=== PATIENT | male | born 1990 | race Caucasian/White ===

== ENCOUNTER 2017-04-10 18:32 | Emergency (ER) | payer SELFPAY ==
[2017-04-10 18:40] VITALS: RESP 18
--- NOTE | 2017-04-10 18:47 | ED ---
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 he states that in december he lost 3 people in the matter of 8 days. one person was his cousin who commited suicide and another was his sponsor. he states that everything has been "going downhill" since then.) How Overdose Was Discovered: family/friend present at time (patient at steffi's house. she administered Narcan. ) Context: Accidental Overdose: other (he states that it was a very small amount so is unsure how he overdosed. he does state that he has not slept in 2 days so that may have attributed to it) Treatments Prior to Arrival: narcan (administered by steffi) - Related Data Home Medications Medication Instructions Recorded Confirmed No Known Home Medications [No 04/10/17 04/10/17 Known Home Medications] Allergies Allergy/AdvReac Type Severity Reaction Status Date / Time No Known Allergies Allergy Verified 04/10/17 18:59 Review of Systems ROS Statement: Those systems with pertinent positive or pertinent negative responses have been documented in the HPI. ROS Other: All systems not noted in ROS Statement are negative. General Exam Limitations: no limitations General appearance: alert, in no apparent distress Head exam: Present: atraumatic, normocephalic Eye exam: Present: EOMI. Absent: normal appearance (bilateral conjunctiva injection) Pupils: Present: miosis (bilateral ) ENT exam: Present: normal exam, normal oropharynx, mucous membranes moist Neck exam: Present: normal inspection, full ROM. Absent: tenderness Respiratory exam: Present: normal lung sounds bilaterally. Absent: respiratory distress, wheezes, rales, rhonchi Cardiovascular Exam: Present: regular rate, normal rhythm, normal heart sounds. Absent: systolic murmur, diastolic murmur GI/Abdominal exam: Present: soft. Absent: distended, tenderness Extremities exam: Present: normal inspection, full ROM. Absent: tenderness Neurological exam: Present: alert, oriented X3, normal gait Psychiatric exam: Present: normal affect, normal mood Skin exam: Present: warm, dry, intact, normal color Course Vital Signs 04/10/17 18:37 Temperature 97.7 F Pulse Rate 91 Respiratory 18 Rate Blood Pressure 144/92 O2 Sat by Pulse 95 Oximetry Medical Decision Making - Medical Decision Making This is a 26-year-old male who presents to the emergency department via EMS for heroin overdose. Narcan was administered by girlfriend prior to EMS arrival. While in the ED, patient's vitals are stable and he is awake and alert. Patient has no complaints. He was monitored for over one hour and appears well, in no acute distress. He will be discharged home. Disposition Clinical Impression: Accidental overdose of heroin Disposition: HOME SELF-CARE Condition: Good Instructions: Adult Overdose (ED) Additional Instructions: Please follow up with primary care provider within 1-2 days. Return to emergency department if symptoms should worsen or any concerns arise. Referrals: None,Stated [Primary Care Provider] - 1-2 days Time of Disposition: 19:54
[2017-04-10 20:05] VITALS: BP 110/65; PULSE 82; TEMP 98
== END 2017-04-10 20:05 | disposition home or self-care (01) ==
LOC: EC 18:32
DX: T40.1X1A Poisoning by heroin, accidental (unintentional), initial encounter (principal)
CPT/HCPCS: 99284

== ENCOUNTER 2018-08-31 18:48 | Inpatient (IN) | payer OTHER ==
[2018-08-31] MEDS ORDERED: SODIUM CHLORIDE 0.9% 1,000 ML IV STA (18:56)
--- NOTE | 2018-08-31 19:00 | ED ---
General Adult HPI - General Stated complaint: overdose Time Seen by Provider: 08/31/18 18:50 Source: police, EMS, RN notes reviewed Mode of arrival: EMS Limitations: altered mental status, physical limitation - History of Present Illness Initial comments: Patient is a 28-year-old male presenting to the emergency department with EMS and police escort for concern for drug overdose. Patient was found unresponsive by family. Patient did receive nasal Narcan 2 mg as well as 0.5 IV. Patient's mentation has improved. Patient is nonverbal still at this point and provides no additional history. Patient does have previous visit for overdose. Please state patient was found with spoon and drug paraphernalia. There is also concern of needle that may been in the patient's arm. - Related Data Home Medications Medication Instructions Recorded Confirmed No Known Home Medications 04/10/17 04/10/17 Allergies Allergy/AdvReac Type Severity Reaction Status Date / Time No Known Allergies Allergy Verified 04/10/17 18:59 Review of Systems ROS Statement: Those systems with pertinent positive or pertinent negative responses have been documented in the HPI. ROS Other: All systems not noted in ROS Statement are negative. Limitations: ROS unobtainable due to patients medical condition Past Medical History Past Medical History: No Reported History History of Any Multi-Drug Resistant Organisms: None Reported Past Surgical History: Orthopedic Surgery Past Psychological History: Depression Smoking Status: Former smoker Past Alcohol Use History: None Reported Past Drug Use History: Heroin General Exam Limitations: altered mental status, physical limitation General appearance: alert, other (Mildly restless) Head exam: Present: atraumatic, normocephalic Eye exam: Present: normal appearance, PERRL ENT exam: Present: mucous membranes dry, other (Poor dentition) Neck exam: Present: normal inspection. Absent: tenderness, meningismus Respiratory exam: Present: normal lung sounds bilaterally Cardiovascular Exam: Present: tachycardia GI/Abdominal exam: Present: soft. Absent: tenderness Extremities exam: Present: normal inspection Expanded Neurological exam: Present: protecting the airway Eye Response: (2) open to pain Motor Response: (5) localizes to pain Verbal Response: incomprehensible sounds Psychiatric exam: Present: other (Limited interaction) Skin exam: Present: normal color. Absent: rash Course Vital Signs 08/31/18 08/31/18 08/31/18 18:52 19:07 19:15 Temperature 100.7 F H Pulse Rate 129 H Pulse Rate [ 126 H Test Lead ] Respiratory 38 H 35 H Rate Blood Pressure 119/93 O2 Sat by Pulse 93 L Oximetry 08/31/18 08/31/18 08/31/18 19:20 19:24 19:48 Temperature Pulse Rate 141 H 119 H Pulse Rate [ Test Lead ] Respiratory 30 H 32 H 36 H Rate Blood Pressure 145/91 128/88 O2 Sat by Pulse 93 L 86 L Oximetry 08/31/18 08/31/18 08/31/18 19:51 20:06 20:13 Temperature 98 F Pulse Rate 117 H 110 H 104 H Pulse Rate [ Test Lead ] Respiratory 33 H 28 H 25 H Rate Blood Pressure 127/88 130/84 115/81 O2 Sat by Pulse 95 95 96 Oximetry 08/31/18 08/31/18 08/31/18 20:20 20:30 20:50 Temperature Pulse Rate 125 H 110 H 94 Pulse Rate [ Test Lead ] Respiratory 23 25 H 20 Rate Blood Pressure 130/84 115/81 114/78 O2 Sat by Pulse 95 95 96 Oximetry 08/31/18 08/31/18 08/31/18 21:10 21:20 21:30 Temperature Pulse Rate 115 H 122 H 105 H Pulse Rate [ Test Lead ] Respiratory 23 23 23 Rate Blood Pressure 113/81 139/105 131/82 O2 Sat by Pulse 95 97 97 Oximetry 08/31/18 08/31/18 21:40 21:50 Temperature Pulse Rate 98 98 Pulse Rate [ Test Lead ] Respiratory 17 22 Rate Blood Pressure 132/89 119/79 O2 Sat by Pulse 99 97 Oximetry - Reevaluation(s) Reevaluation #1: 08/31/18 20:32 Patient reevaluated 2 times. Patient was able to tolerate lumbar puncture without difficulty. Patient did flinch somewhat during lidocaine administration however not the rest of the procedure. Patient still remains drowsy. GCS remains around 9. There is concern for possible endocarditis with history of drug use and fever. Spinal fluid was clear. Patient will be intubated for altered mental status and to protect airway. Case was discussed in detail with Dr. Hammonds, covering for hospital call, who will admit. 08/31/18 21:12 Patient was intubated for airway protection. Case was also discussed in detail with Dr. Gonzalez who agrees with care and will consult for critical care in the ICU. 08/31/18 21:19 Patient has been covered with antibiotics for presumptive septic shock and possible endocarditis. Cardiology and infectious disease will be consulted. Echo will be ordered. There is suspicion for septic shock diagnosed at 2100. Blood culture and lactic acid and IV antibiotics have all been ordered. Fluid bolus has been ordered. 08/31/18 22:09 Admission orders were written. EKG Findings - EKG Comments: EKG Findings:: Sinus tachycardia 120. PA 162. QRS 96. QT 322. QTC 455. Normal axis. Normal QRS. No acute ST change. Procedures - ABG Interpretation Ph: 7.29 PCO2: 47.6 PO2: 4,000 Interpretation: respiratory acidosis, metabolic acidosis - Intubation Sedative: Versed Paralytic: Succinylcholine Laryngoscope: Jensen Size: 3 ET Tube Size: 8 Tube Secured Depth (cm): 23 Tube Secured Location: lips Tube Placement Confirmation: visualized tube passing through cords, equal breath sounds bilaterally, no breath sounds over epigastrium, confirmation by capnometry Patient Tolerated Procedure: well, no complications Intubation Complications: none - Lumbar Puncture Consent Obtained: emergent situation Indication for Procedure: fever work up Patient Position: sitting upright/leaning forward Skin Prep: 0.5% Chlorhexidine/Alcohol Local Anesthetic Used: Lidocaine 1% Interspace Used: L4-L5 Fluid Initially Obtained: clear Complications: none Patient Tolerated Procedure: well, no complications - Sepsis Sepsis Focused Exam #1 Time Sepsis Criteria Met: 21:01 Sepsis Focused Exam Date: 08/31/18 Sepsis Focused Exam Time: 22:29 Sepsis Focused Exam Complete: Yes Vital Signs & RN Notes Reviewed: Yes Capillary Refill: < 2 Seconds: Fingers, Toes Peripheral Pulses: Normal: Radial (R), Radial (L), Dorsalis Pedis (R), Dorsalis Pedis (L) Skin Color: Normal for Patient Respiratory Exam: normal lung sounds Cardiovascular Exam: tachycardia Medical Decision Making - Lab Data Result diagrams: 08/31/18 18:54 08/31/18 18:54 Lab Results 08/31/18 08/31/18 08/31/18 Range/Units 18:54 18:54 18:54 WBC (3.8-10.6) k/uL RBC (4.30-5.90) m/uL Hgb (13.0-17.5) gm/dL Hct (39.0-53.0) % MCV (80.0-100.0) fL MCH (25.0-35.0) pg MCHC (31.0-37.0) g/dL RDW (11.5-15.5) % Plt Count (150-450) k/uL Neutrophils % % Lymphocytes % % Monocytes % % Eosinophils % % Basophils % % Neutrophils # (1.3-7.7) k/uL Lymphocytes # (1.0-4.8) k/uL Monocytes # (0-1.0) k/uL Eosinophils # (0-0.7) k/uL Basophils # (0-0.2) k/uL PT 10.2 (9.0-12.0) sec INR 1.0 (<1.2) Sodium 138 (137-145) mmol/L Potassium 4.8 (3.5-5.1) mmol/L Chloride 100 (98-107) mmol/L Carbon Dioxide 19 L (22-30) mmol/L Anion Gap 19 mmol/L BUN 7 L (9-20) mg/dL Creatinine 1.48 H (0.66-1.25) mg/dL Est GFR (CKD-EPI)AfAm 73 (>60 ml/min/1.73 sqM) Est GFR (CKD-EPI)NonAf 63 (>60 ml/min/1.73 sqM) Glucose 341 H (74-99) mg/dL Plasma Lactic Acid Martin (0.7-2.0) mmol/L Calcium 9.6 (8.4-10.2) mg/dL Total Bilirubin 0.6 (0.2-1.3) mg/dL AST 116 H (17-59) U/L ALT 74 H (21-72) U/L Alkaline Phosphatase 107 (38-126) U/L Creatine Kinase 539 H (55-170) U/L CK-MB (CK-2) (0.0-2.4) ng/mL Troponin I 0.609 H* (0.000-0.034) ng/mL NT-Pro-B Natriuret Pep pg/mL Total Protein 7.4 (6.3-8.2) g/dL Albumin 4.6 (3.5-5.0) g/dL Urine Color Urine Appearance (Clear) Urine pH (5.0-8.0) Ur Specific [place] (1.001-1.035) Urine Protein (Negative) Urine Glucose (UA) (Negative) Urine Ketones (Negative) Urine Blood (Negative) Urine Nitrite (Negative) Urine Bilirubin (Negative) Urine Urobilinogen (<2.0) mg/dL Ur Leukocyte Esterase (Negative) Urine RBC (0-5) /hpf Urine WBC (0-5) /hpf Hyaline Casts (0-2) /lpf Urine Mucus (None) /hpf CSF Tube Number CSF Volume CSF Appearance CSF Color CSF RBC (0-10) u/L CSF Tot Nucleated Cells (0-5) u/L CSF Glucose (40-70) mg/dL CSF Total Protein (12-60) mg/dL Salicylates <1.0 mg/dL Urine Opiates Screen (NotDetected) Ur Oxycodone Screen (NotDetected) Urine Methadone Screen (NotDetected) Ur Propoxyphene Screen (NotDetected) Acetaminophen <10.0 ug/mL Ur Barbiturates Screen (NotDetected) U Tricyclic Antidepress (NotDetected) Ur Phencyclidine Scrn (NotDetected) Ur Amphetamines Screen (NotDetected) U Methamphetamines Scrn (NotDetected) U Benzodiazepines Scrn (NotDetected) Urine Cocaine Screen (NotDetected) U Marijuana (THC) Screen (NotDetected) Serum Alcohol <10 mg/dL 08/31/18 08/31/18 08/31/18 Range/Units 18:54 18:54 18:54 WBC 21.9 H (3.8-10.6) k/uL RBC 5.31 (4.30-5.90) m/uL Hgb 15.6 (13.0-17.5) gm/dL Hct 47.9 (39.0-53.0) % MCV 90.2 (80.0-100.0) fL MCH 29.3 (25.0-35.0) pg MCHC 32.5 (31.0-37.0) g/dL RDW 14.0 (11.5-15.5) % Plt Count 334 (150-450) k/uL Neutrophils % 79 % Lymphocytes % 16 % Monocytes % 1 % Eosinophils % 3 % Basophils % 1 % Neutrophils # 17.3 H (1.3-7.7) k/uL Lymphocytes # 3.4 (1.0-4.8) k/uL Monocytes # 0.2 (0-1.0) k/uL Eosinophils # 0.7 (0-0.7) k/uL Basophils # 0.1 (0-0.2) k/uL PT (9.0-12.0) sec INR (<1.2) Sodium (137-145) mmol/L Potassium (3.5-5.1) mmol/L Chloride (98-107) mmol/L Carbon Dioxide (22-30) mmol/L Anion Gap mmol/L BUN (9-20) mg/dL Creatinine (0.66-1.25) mg/dL Est GFR (CKD-EPI)AfAm (>60 ml/min/1.73 sqM) Est GFR (CKD-EPI)NonAf (>60 ml/min/1.73 sqM) Glucose (74-99) mg/dL Plasma Lactic Acid Martin 9.1 H* (0.7-2.0) mmol/L Calcium (8.4-10.2) mg/dL Total Bilirubin (0.2-1.3) mg/dL AST (17-59) U/L ALT (21-72) U/L Alkaline Phosphatase (38-126) U/L Creatine Kinase (55-170) U/L CK-MB (CK-2) 6.4 H (0.0-2.4) ng/mL Troponin I (0.000-0.034) ng/mL NT-Pro-B Natriuret Pep pg/mL Total Protein (6.3-8.2) g/dL Albumin (3.5-5.0) g/dL Urine Color Urine Appearance (Clear) Urine pH (5.0-8.0) Ur Specific [place] (1.001-1.035) Urine Protein (Negative) Urine Glucose (UA) (Negative) Urine Ketones (Negative) Urine Blood (Negative) Urine Nitrite (Negative) Urine Bilirubin (Negative) Urine Urobilinogen (<2.0) mg/dL Ur Leukocyte Esterase (Negative) Urine RBC (0-5) /hpf Urine WBC (0-5) /hpf Hyaline Casts (0-2) /lpf Urine Mucus (None) /hpf CSF Tube Number CSF Volume CSF Appearance CSF Color CSF RBC (0-10) u/L CSF Tot Nucleated Cells (0-5) u/L CSF Glucose (40-70) mg/dL CSF Total Protein (12-60) mg/dL Salicylates mg/dL Urine Opiates Screen (NotDetected) Ur Oxycodone Screen (NotDetected) Urine Methadone Screen (NotDetected) Ur Propoxyphene Screen (NotDetected) Acetaminophen ug/mL Ur Barbiturates Screen (NotDetected) U Tricyclic Antidepress (NotDetected) Ur Phencyclidine Scrn (NotDetected) Ur Amphetamines Screen (NotDetected) U Methamphetamines Scrn (NotDetected) U Benzodiazepines Scrn (NotDetected) Urine Cocaine Screen (NotDetected) U Marijuana (THC) Screen (NotDetected) Serum Alcohol mg/dL 08/31/18 08/31/18 08/31/18 Range/Units 18:54 19:06 19:06 WBC (3.8-10.6) k/uL RBC (4.30-5.90) m/uL Hgb (13.0-17.5) gm/dL Hct (39.0-53.0) % MCV (80.0-100.0) fL MCH (25.0-35.0) pg MCHC (31.0-37.0) g/dL RDW (11.5-15.5) % Plt Count (150-450) k/uL Neutrophils % % Lymphocytes % % Monocytes % % Eosinophils % % Basophils % % Neutrophils # (1.3-7.7) k/uL Lymphocytes # (1.0-4.8) k/uL Monocytes # (0-1.0) k/uL Eosinophils # (0-0.7) k/uL Basophils # (0-0.2) k/uL PT (9.0-12.0) sec INR (<1.2) Sodium (137-145) mmol/L Potassium (3.5-5.1) mmol/L Chloride (98-107) mmol/L Carbon Dioxide (22-30) mmol/L Anion Gap mmol/L BUN (9-20) mg/dL Creatinine (0.66-1.25) mg/dL Est GFR (CKD-EPI)AfAm (>60 ml/min/1.73 sqM) Est GFR (CKD-EPI)NonAf (>60 ml/min/1.73 sqM) Glucose (74-99) mg/dL Plasma Lactic Acid Martin (0.7-2.0) mmol/L Calcium (8.4-10.2) mg/dL Total Bilirubin (0.2-1.3) mg/dL AST (17-59) U/L ALT (21-72) U/L Alkaline Phosphatase (38-126) U/L Creatine Kinase (55-170) U/L CK-MB (CK-2) (0.0-2.4) ng/mL Troponin I (0.000-0.034) ng/mL NT-Pro-B Natriuret Pep 29 pg/mL Total Protein (6.3-8.2) g/dL Albumin (3.5-5.0) g/dL Urine Color Light Yellow Urine Appearance Clear (Clear) Urine pH 6.5 (5.0-8.0) Ur Specific [place] 1.008 (1.001-1.035) Urine Protein 1+ H (Negative) Urine Glucose (UA) 3+ H (Negative) Urine Ketones Negative (Negative) Urine Blood Moderate H (Negative) Urine Nitrite Negative (Negative) Urine Bilirubin Negative (Negative) Urine Urobilinogen <2.0 (<2.0) mg/dL Ur Leukocyte Esterase Negative (Negative) Urine RBC 3 (0-5) /hpf Urine WBC 3 (0-5) /hpf Hyaline Casts 7 H (0-2) /lpf Urine Mucus Rare H (None) /hpf CSF Tube Number CSF Volume CSF Appearance CSF Color CSF RBC (0-10) u/L CSF Tot Nucleated Cells (0-5) u/L CSF Glucose (40-70) mg/dL CSF Total Protein (12-60) mg/dL Salicylates mg/dL Urine Opiates Screen Not Detected (NotDetected) Ur Oxycodone Screen Not Detected (NotDetected) Urine Methadone Screen Not Detected (NotDetected) Ur Propoxyphene Screen Not Detected (NotDetected) Acetaminophen ug/mL Ur Barbiturates Screen Not Detected (NotDetected) U Tricyclic Antidepress Not Detected (NotDetected) Ur Phencyclidine Scrn Not Detected (NotDetected) Ur Amphetamines Screen Not Detected (NotDetected) U Methamphetamines Scrn Not Detected (NotDetected) U Benzodiazepines Scrn Not Detected (NotDetected) Urine Cocaine Screen Not Detected (NotDetected) U Marijuana (THC) Screen Not Detected (NotDetected) Serum Alcohol mg/dL 08/31/18 Range/Units 20:27 WBC (3.8-10.6) k/uL RBC (4.30-5.90) m/uL Hgb (13.0-17.5) gm/dL Hct (39.0-53.0) % MCV (80.0-100.0) fL MCH (25.0-35.0) pg MCHC (31.0-37.0) g/dL RDW (11.5-15.5) % Plt Count (150-450) k/uL Neutrophils % % Lymphocytes % % Monocytes % % Eosinophils % % Basophils % % Neutrophils # (1.3-7.7) k/uL Lymphocytes # (1.0-4.8) k/uL Monocytes # (0-1.0) k/uL Eosinophils # (0-0.7) k/uL Basophils # (0-0.2) k/uL PT (9.0-12.0) sec INR (<1.2) Sodium (137-145) mmol/L Potassium (3.5-5.1) mmol/L Chloride (98-107) mmol/L Carbon Dioxide (22-30) mmol/L Anion Gap mmol/L BUN (9-20) mg/dL Creatinine (0.66-1.25) mg/dL Est GFR (CKD-EPI)AfAm (>60 ml/min/1.73 sqM) Est GFR (CKD-EPI)NonAf (>60 ml/min/1.73 sqM) Glucose (74-99) mg/dL Plasma Lactic Acid Martin (0.7-2.0) mmol/L Calcium (8.4-10.2) mg/dL Total Bilirubin (0.2-1.3) mg/dL AST (17-59) U/L ALT (21-72) U/L Alkaline Phosphatase (38-126) U/L Creatine Kinase (55-170) U/L CK-MB (CK-2) (0.0-2.4) ng/mL Troponin I (0.000-0.034) ng/mL NT-Pro-B Natriuret Pep pg/mL Total Protein (6.3-8.2) g/dL Albumin (3.5-5.0) g/dL Urine Color Urine Appearance (Clear) Urine pH (5.0-8.0) Ur Specific [place] (1.001-1.035) Urine Protein (Negative) Urine Glucose (UA) (Negative) Urine Ketones (Negative) Urine Blood (Negative) Urine Nitrite (Negative) Urine Bilirubin (Negative) Urine Urobilinogen (<2.0) mg/dL Ur Leukocyte Esterase (Negative) Urine RBC (0-5) /hpf Urine WBC (0-5) /hpf Hyaline Casts (0-2) /lpf Urine Mucus (None) /hpf CSF Tube Number 4 CSF Volume 1 CSF Appearance Clear CSF Color Colorless CSF RBC 2 (0-10) u/L CSF Tot Nucleated Cells 0 (0-5) u/L CSF Glucose 135 H (40-70) mg/dL CSF Total Protein 57 (12-60) mg/dL Salicylates mg/dL Urine Opiates Screen (NotDetected) Ur Oxycodone Screen (NotDetected) Urine Methadone Screen (NotDetected) Ur Propoxyphene Screen (NotDetected) Acetaminophen ug/mL Ur Barbiturates Screen (NotDetected) U Tricyclic Antidepress (NotDetected) Ur Phencyclidine Scrn (NotDetected) Ur Amphetamines Screen (NotDetected) U Methamphetamines Scrn (NotDetected) U Benzodiazepines Scrn (NotDetected) Urine Cocaine Screen (NotDetected) U Marijuana (THC) Screen (NotDetected) Serum Alcohol mg/dL - Radiology Data Radiology results: report reviewed (Computed tomography scan the brain reveals no acute process), image reviewed (X-ray shows no acute process) Interpreted by me: Repeat chest x-ray shows appropriate endotracheal tube positioning. There is increased opacities bilateral perihilar region. Critical Care Time Critical Care Time: Yes Total Critical Care Time: 68 Disposition Clinical Impression: Septic shock Disposition: ADMITTED IP TO THIS [facility] Condition: Critical Is patient prescribed a controlled substance at d/c from ED?: No Decision Time: 21:13
[2018-08-31] MEDS ORDERED: NALOXONE 0.4 MG/ML 1 ML VIAL IV STA (19:14)
[2018-08-31] MEDS ORDERED: NALOXONE 0.4 MG/ML 10 ML VIAL IM STA (19:18)
[2018-08-31] MEDS ORDERED: NALOXONE 0.4 MG/ML 1 ML VIAL IM STA (19:18)
[2018-08-31 19:19] LABS: Basophils # (A) 0.1 k/uL (0-0.2); Basophils % (A) 1 %; Eosinophils # (A) 0.7 k/uL (0-0.7); Eosinophils % (A) 3 %; HCT 47.9 % (39.0-53.0); HGB 15.6 gm/dL (13.0-17.5); Lymphocytes # (A) 3.4 k/uL (1.0-4.8); Lymphocytes % (A) 16 %; MCH 29.3 pg (25.0-35.0); MCHC 32.5 g/dL (31.0-37.0); MCV 90.2 fL (80.0-100.0); Mean Platelet Volume 7.3; Monocytes # (A) 0.2 k/uL (0-1.0); Monocytes % (A) 1 %; Neutrophils # (A) 17.3 k/uL (1.3-7.7); Neutrophils % (A) 79 %; Platelet Count 334 k/uL (150-450); RBC 5.31 m/uL (4.30-5.90); WBC 21.9 k/uL (3.8-10.6)
[2018-08-31 19:20] LABS: Prothrombin Time 10.2 sec (9.0-12.0)
[2018-08-31 19:24] LABS: ALT 74 U/L (21-72); AST 116 U/L (17-59); Acetaminophen <10.0 ug/mL; African American GFR (CKD) 73 (>60 ml/min/1.73 sqM); Albumin 4.6 g/dL (3.5-5.0); Alcohol <10 mg/dL; Alkaline Phosphatase 107 U/L (38-126); Anion Gap 19 mmol/L; Blood Urea Nitrogen 7 mg/dL (9-20); Calcium 9.6 mg/dL (8.4-10.2); Carbon Dioxide 19 mmol/L (22-30); Chloride 100 mmol/L (98-107); Creatine Kinase 539 U/L (55-170); Glucose 341 mg/dL (74-99); Potassium 4.8 mmol/L (3.5-5.1); Salicylate <1.0 mg/dL; Sodium 138 mmol/L (137-145); Total Bilirubin 0.6 mg/dL (0.2-1.3); Total Protein 7.4 g/dL (6.3-8.2)
[2018-08-31 19:27] LABS: Amphetamine Screen,Urine Not Detected (NotDetected); Appearance,Urine Clear (Clear); Barbiturate Screen,Urine Not Detected (NotDetected); Benzodiazepines Screen,Urine Not Detected (NotDetected); Bilirubin,Urine Negative (Negative); Blood,Urine Moderate (Negative); Cocaine Screen,Urine Not Detected (NotDetected); Color,Urine Light Yellow; Glucose,Urine (UA) 3+ (Negative); Hyaline Casts,Urine 7 /lpf (0-2); Ketones,Urine Negative (Negative); Leukocyte Esterase,Urine Negative (Negative); Methadone Screen, Urine Not Detected (NotDetected); Mucus,Urine Rare /hpf; Nitrite,Urine Negative (Negative); Opiate Screen,Urine Not Detected (NotDetected); Oxycodone Screen, Urine Not Detected (NotDetected); PH, Urine 6.5 (5.0-8.0); Phencyclidine Screen,Urine Not Detected (NotDetected); Protein,Urine 1+ (Negative); RBC,Urine 3 /hpf (0-5); Specific Gravity,Urine 1.008 (1.001-1.035); Tricyclic Antidepressant,Urine Not Detected (NotDetected); Urn Cannabinoid Scrn Not Detected (NotDetected); Urobilinogen,Urine <2.0 mg/dL (<2.0); WBC,Urine 3 /hpf (0-5)
[2018-08-31] MEDS ORDERED: ACETAMINOPHEN SUPPOSITORY 650 MG SUPP RECTAL STA (19:27)
--- NOTE | 2018-08-31 19:45 | XR ---
EXAMINATION TYPE: XR chest 1V portable DATE OF EXAM: 08/31/2018 COMPARISON: NONE HISTORY: Altered mental status. Drug overdose. TECHNIQUE: Single frontal view of the chest is obtained. FINDINGS: Heart and mediastinum are normal. Lungs are clear. Diaphragm is normal. There are chest le ads. IMPRESSION: Normal chest
--- NOTE | 2018-08-31 19:59 | CT ---
EXAMINATION TYPE: CT brain wo con DATE OF EXAM: 08/31/2018 COMPARISON: None HISTORY: Altered mental status. CT DLP: 1133.4 mGycm. Automated Exposure Control for Dose Reduction was Utilized. TECHNIQUE: CT scan of the head is performed without contrast. FINDINGS: Ventricles have normal size. There is no mass effect nor midline shift. There is no sign of intracranial hemorrhage. Calvarium is intact. IMPRESSION: Negative CT scan of the brain. Right maxillary sinusitis noted.
[2018-08-31] MEDS ORDERED: PIPERACILLIN-TAZOBACTAM 3.375 GM in SODIUM CHLORIDE 0.9% 100 ML IVPB STA (20:25)
[2018-08-31] MEDS ORDERED: VANCOMYCIN IV PER PHARMACY 1 EACH MISC MISCELLANE PRN (20:32)
[2018-08-31] MEDS ORDERED: SODIUM CHLORIDE 0.9% 1,000 ML IV ONE (20:33)
[2018-08-31] MEDS ORDERED: SODIUM CHLORIDE 0.9% 500 ML 500 ML IV STA (20:35)
[2018-08-31] MEDS ORDERED: CHLORHEXIDINE GLUCONATE 15 ML CUP MUCOUS MEM ONE (20:55)
[2018-08-31 21:01] LABS: Appearance,CSF Clear; Glucose,CSF 135 mg/dL (40-70); Total Protein,CSF 57 mg/dL (12-60)
[2018-08-31 21:02] LABS: CSF Tube Number 4; CSF Tube Volume 1; Nucleated Cells, CSF 0 u/L (0-5); Red Blood Cell,CSF 2 u/L (0-10)
[2018-08-31] MEDS ORDERED: SUCCINYLCHOLINE CHLORIDE VIAL 200 MG/10 ML VIAL IV STA (21:05)
[2018-08-31] MEDS ORDERED: MIDAZOLAM 1 MG/ML 5 ML VIAL IV STA (21:05)
[2018-08-31] MEDS ORDERED: LORazepam 2 MG/ML INJ IV PRN ×2 (21:10)
[2018-08-31] MEDS ORDERED: PROPOFOL 1,000 MG in EMPTY BAG 1 BAG IV SCH (21:15)
[2018-08-31] MEDS ORDERED: ACETAMINOPHEN SUPPOSITORY 650 MG SUPP RECTAL PRN (21:23)
[2018-08-31] MEDS ORDERED: NALOXONE 0.4 MG/ML 1 ML VIAL IV PRN (21:23)
--- NOTE | 2018-08-31 21:49 | XR ---
EXAMINATION TYPE: XR chest 1V portable DATE OF EXAM: 08/31/2018 COMPARISON: Today HISTORY: Intubation TECHNIQUE: Single frontal view of the chest is obtained. FINDINGS: There is endotracheal tube 2 cm from the tico. There is pulmonary alveolar edema. There are chest leads. There is nasogastric tube. IMPRESSION: There is pulmonary edema that is new compared to exam 2 hours ago.
[2018-08-31 21:59] LABS: ABG Base Excess -3.4 mmol/L; ABG HCO3 23 mmol/L (21-25); ABG Oxygen Saturation 99.5 % (94-97); ABG PCO2 48 mmHg (35-45); ABG PO2 >400 mmHg (83-108); ABG TCO2 25 mmol/L (19-24); Allen Test Performed? Yes
[2018-08-31] MEDS ORDERED: VANCOMYCIN 1,500 MG in SODIUM CHLORIDE 0.9% 250 ML IVPB ONE (22:00)
[2018-08-31 22:04] LABS: Amphetamine Screen,Urine Not Detected (NotDetected); Barbiturate Screen,Urine Not Detected (NotDetected); Benzodiazepines Screen,Urine Not Detected (NotDetected); Cocaine Screen,Urine Not Detected (NotDetected); Methadone Screen, Urine Not Detected (NotDetected); Opiate Screen,Urine Not Detected (NotDetected); Oxycodone Screen, Urine Not Detected (NotDetected); Phencyclidine Screen,Urine Not Detected (NotDetected); Tricyclic Antidepressant,Urine Not Detected (NotDetected); Urn Cannabinoid Scrn Not Detected (NotDetected)
[2018-08-31] MEDS: SODIUM CHLORIDE 0.9% 1,000 ML IV SCH (22:17)
[2018-08-31 22:27] LABS: Glucose,Whole Blood 81 mg/dL (75-99)
[2018-08-31] MEDS: IPRATROPIUM-ALBUTEROL 3 ML NEB INHALATION PRN (23:02)
[2018-08-31 23:03] LABS: Glucose,Whole Blood 87 mg/dL (75-99)
[2018-08-31] MEDS: PROPOFOL 1,000 MG in EMPTY BAG 1 BAG IV SCH (23:45)
[2018-09-01 01:23] LABS: Creatine Kinase 2085 U/L (55-170)
[2018-09-01] MEDS ORDERED: FUROSEMIDE 10 MG/ML 2 ML VIAL IV STA ×2 (01:23→04:38)
[2018-09-01] MEDS: HEPARIN SODIUM,PORCINE 5,000 UNIT/ML 1 ML VIAL SQ SCH ×3 (01:29→17:09)
[2018-09-01] MEDS: IPRATROPIUM-ALBUTEROL 3 ML NEB INHALATION PRN (03:08)
[2018-09-01] MEDS: PROPOFOL 1,000 MG in EMPTY BAG 1 BAG IV SCH (03:16)
[2018-09-01 04:27] LABS: ABG Base Excess -1.7 mmol/L; ABG HCO3 25 mmol/L (21-25); ABG Oxygen Saturation 98.8 % (94-97); ABG PCO2 48 mmHg (35-45); ABG PH 7.31 (7.35-7.45); ABG PO2 154 mmHg (83-108); ABG TCO2 26 mmol/L (19-24); Allen Test Performed? Yes
[2018-09-01 05:45] LABS: Basophils % (A) 0 %; Eosinophils # (A) 0.1 k/uL (0-0.7); Eosinophils % (A) 0 %; HGB 13.6 gm/dL (13.0-17.5); Lymphocytes # (A) 1.5 k/uL (1.0-4.8); Lymphocytes % (A) 12 %; MCH 30.3 pg (25.0-35.0); MCHC 34.9 g/dL (31.0-37.0); Mean Platelet Volume 7.4; Monocytes # (A) 0.6 k/uL (0-1.0); Monocytes % (A) 5 %; Neutrophils # (A) 10.3 k/uL (1.3-7.7); Neutrophils % (A) 82 %; Platelet Count 227 k/uL (150-450); RBC 4.48 m/uL (4.30-5.90); RDW 13.7 % (11.5-15.5); WBC 12.6 k/uL (3.8-10.6)
[2018-09-01 06:03] LABS: ALT 112 U/L (21-72); AST 155 U/L (17-59); African American GFR (CKD) >90 (>60 ml/min/1.73 sqM); Albumin 3.6 g/dL (3.5-5.0); Alkaline Phosphatase 84 U/L (38-126); Anion Gap 7 mmol/L; Blood Urea Nitrogen 12 mg/dL (9-20); Calcium 8.2 mg/dL (8.4-10.2); Carbon Dioxide 24 mmol/L (22-30); Chloride 109 mmol/L (98-107); Glucose 80 mg/dL (74-99); Magnesium 1.7 mg/dL (1.6-2.3); Phosphorus 3.9 mg/dL (2.5-4.5); Potassium 4.4 mmol/L (3.5-5.1); Sodium 140 mmol/L (137-145); Total Bilirubin 0.6 mg/dL (0.2-1.3); Total Protein 6.3 g/dL (6.3-8.2)
[2018-09-01] MEDS: SODIUM CHLORIDE 0.9% 1,000 ML IV SCH ×3 (06:03→22:53)
[2018-09-01] MEDS: PIPERACILLIN-TAZOBACTAM 3.375 GM in SODIUM CHLORIDE 0.9% 100 ML IVPB SCH ×3 (06:07→22:53)
--- NOTE | 2018-09-01 07:11 | HP ---
HISTORY AND PHYSICAL DATE OF SERVICE: 08/31/2018 CHIEF COMPLAINT: Unresponsive. HISTORY OF PRESENT ILLNESS: This 28-year-old gentleman with a past medical history of IV drug abuse, history of DJD, history of depression, previous history of unresponsive, being followed by no primary physician in the outpatient setting had a longstanding history of IV drug abuse. The patient apparently had unresponsiveness and the patient was mechanically intubated elsewhere several years ago according to the family. Today, the patient was found unresponsive by significant other who performed CPR. Subsequently, EMS was called and patient initially had Narcan 2 mg nasal and subsequently 0.5 IV, which improved the consciousness slightly, but the patient was basically unresponsive. Klarissa coma scale was 9. The patient was taken to the emergency room and the patient was found to be hypotensive, 2.5 L of fluid was given, 1.6 of Narcan was repeated, but subsequently patient was mechanically intubated for airway protection, unresponsive. The patient admitted to ICU at this time. The patient does have some IV needle tracks. The patient also had multiple skin lesions also. Currently patient unable to give coherent history most of the history taken from my discussion with the staff as well as review of the chart at this time. The most recent chest x-ray showed some pulmonary edema, possibly secondary to fluid resuscitation or noncardiogenic . Interestingly the drug screen is negative at this time but however per old chart in March 2017 patient had documented episode event of opioid overdose, which was recovered by Narcan and the patient was discharged from the ER from this hospital. Currently, white count is also elevated at 21.9 and creatinine is 1.48. Glucose was 341. No documented insulin was noted, but sugars came down to 71. Serum acetone has been requested. Creatine kinase elevated 530. AST and ALT were also elevated. The patient apparently had hepatitis C also. Lumbar puncture showed glucose 135 and not much else either. As mentioned earlier, the drug screen was negative at this time. PAST MEDICAL HISTORY: History of IV drug abuse, previous overdose, DJD, history of depression, history of nicotine dependence. MEDICATIONS: None. ALLERGIES: None. FAMILY HISTORY, SOCIAL HISTORY, REVIEW OF SYSTEMS: Could not be taken other than mentioned earlier because of the patient's change in mental status. PHYSICAL EXAMINATION: Patient is mechanically ventilated and sedated. Pulse is 98, blood pressure is 119/79, respiration 22, temperature normal, pulse ox 97% on mechanical ventilation. The vent settings are assist-control 450, tidal volume FiO2, PEEP of 5. HEENT: conjunctivae. Pupils are constricted. Oral mucosa moist. NECK: Is no jugular venous distention. No carotid bruit. No lymph node enlargement. CARDIOVASCULAR: S1, S2 muffled. No S3, no S4. RESPIRATORY; Breath sounds diminished at the bases. A few scattered rhonchi and crackles. ABDOMEN: Soft, nontender. No mass palpable. LEGS: No edema, no swelling. NERVOUS SYSTEM: The patient mechanically sedated. JOINTS: Otherwise joints no active deforming arthropathy. SKIN: Diffuse ulcerations on IV line markings also present. LABS AND INVESTIGATIONS: WBC 21.9, hemoglobin 15.6. The pH of 7.3, pCO2 of 48. Creatinine is 1.48. AST and ALT noted. Creatine kinase is noted. ASSESSMENT: 1. Unresponsive, change in mental status secondary to metabolic encephalopathy secondary to possible drug overdosage. 2. Acute hypoxic respiratory failure on mechanical ventilation. 3. Acute possibly secondary to drug overdose, rule out sepsis. 4. Acute metabolic acidosis secondary from multiple factors. 5. Acute renal failure possibly prerenal acute tubular necrosis. 6. Increased random blood sugar of undetermined significance, which is normalized now. 7. Increased AST, ALT, possibly hepatitis. 8. Increased creatine kinase with rhabdomyolysis. 9. Troponin 0.609, indeterminate. 10.History of previous overdosage. 11.History of degenerative joint disease. 12.History of depression. 13.History of nicotine dependence. 14.History of heroin usage. 15.FULL CODE. RECOMMENDATIONS AND DISCUSSION: This 28-year-old gentleman who presented with multiple complex medical issues, we will monitor the patient closely. Continue the current medications. Continue symptomatic treatment. Continue with mechanical ventilation otherwise I would also recommend monitor intake per chart and monitor fluid electrolyte balance. Dose of Lasix may be given. The possibility of cardiogenic or noncardiogenic pulmonary also considered. The troponin is also elevated. The EKG done showed ST changes. I would recommend a 2D echo with Doppler in the morning and continue to monitor. Empiric antibiotics also will be used. The patient is started on daptomycin at this time. We will closely monitor with Intensive Care, Cardiology and Infectious Disease. Guarded prognosis because of multiple complex medical issues. Further recommendations to follow. See orders for details. We will also send a flu swab and obtain cultures as well. We will also get extended drug screen for further evaluation including detection of possible other toxicology agent also. MMODL / IJN: [id number] / JOSHUA
--- NOTE | 2018-09-01 07:44 | XR ---
EXAMINATION TYPE: XR chest 1V portable DATE OF EXAM: 09/01/2018 COMPARISON: 08/31/2018 HISTORY: Enteric and endotracheal tube removal TECHNIQUE: Single frontal view of the chest is obtained. FINDINGS: There is marked improvement in aeration of the lungs with only minimal left basilar linear airspace disease remaining. Enteric and endotracheal tubes have been removed in the interim. No pleu ral effusion or pneumothorax. Cardiomediastinal silhouette is mildly enlarged and stable. No acute os seous pathology. IMPRESSION: Marked improved aeration of the lungs with only residual left basilar airspace disease, likely atelectasis.
[2018-09-01] MEDS: PANTOPRAZOLE 40 MG/10 ML VIAL IV SCH (08:01)
[2018-09-01] MEDS ORDERED: VANCOMYCIN 1,250 MG in SODIUM CHLORIDE 0.9% 250 ML IVPB SCH (09:00)
[2018-09-01] MEDS ORDERED: CHLORHEXIDINE GLUCONATE 15 ML CUP MUCOUS MEM SCH (09:00)
--- NOTE | 2018-09-01 09:03 | CONS ---
CONSULTATION PULMONARY CRITICAL CARE CONSULTATION: DATE OF CONSULTATION: 09/01/2018 This is a 28-year-old male who presented to the emergency department with EMS and police escort for concern of drug overdose. He apparently was found unresponsive by significant other. The patient did receive some Narcan as well as IV Narcan. The patient's mentation initially improved. Actually cardiopulmonary resuscitation was started at the scene. The patient apparently in the emergency room was initially nonverbal, seemed to improve a bit and then got worse again. Because of concerns of airway protection, Dr. Russ Pardo went ahead and intubated the patient. Drug paraphernalia was found at the home that he was at. He apparently has a previous history of drug overdose as well. There was apparently a needle that was stuck in his arm as well. The patient does have a history of polysubstance abuse. Anyway, the patient was transferred up to the ICU. He is currently on the ventilator. He is on the volume assist-control mode rate 16, tidal volume 450, FiO2 pf 50% to be dropped to 40% with a PEEP of 5. Blood gases show a PO2 of 154, pCO2 of 48, pH of 7.31. He is on propofol 40 mcg/kg per per minute and a saline IV at 130 mL an hour. The patient appears to be relatively stable. We are going to stop the propofol. We will give him Lasix 20 mg IV push, drop his IV fluids back down to 75 mL an hour and drop the FiO2 down to 40%. When he is more awake, will go ahead and place him on PSV 5 and CPAP of 5 and see if he is ready for spontaneous breathing trial and possible extubation. . HOME MEDICATIONS: Apparently none. ALLERGIES: None. MEDICAL HISTORY: Apparently positive for polysubstance overdose and possible anxiety/depression. SURGICAL HISTORY: Not known, although he apparently has had some orthopedic procedure. SOCIAL HISTORY: Positive for previous tobacco use. Denies alcohol. Previous drug use and illicit drug use includes heroin. Interestingly, his drug screen was negative. It calls into question whether not he had something such as synthetic marijuana and/or a bath salts as a possible drug ingestion. The rest of the history could not be obtained. REVIEW OF SYSTEMS: Cannot be obtained. The patient is currently sedated. Current vital signs are reviewed, temperature is 98.6, heart rate 85, respiratory rate 16, blood pressure 108/63 mean 78 and saturations are 97% on 40% FiO2 and 5 of PEEP. Appears in no acute distress. Currently sedated. HEENT: Examination is grossly unremarkable. There is an orally placed endotracheal tube and NG tube. NECK: Supple. No adenopathy or thyromegaly. Neck veins are flat. CARDIOVASCULAR: Examination reveals regular rhythm and rate. Heart rate about 80. S1, S2 normal. LUNGS: Reveal mostly clear breath sounds. No wheezes or rhonchi. No crackles. ABDOMEN: Soft, bowel sounds are heard. EXTREMITIES: Intact. No cyanosis, clubbing, or edema. SKIN: Without rash. NEUROLOGIC: Examination could not be adequately assessed. LAB DATA: Reviewed. We do have the blood gas as has been mentioned. From yesterday, white count 21.9, hemoglobin, hematocrit and platelet count all normal. Sodium 138, potassium 4.8, chloride 100, CO2 is 19, BUN and creatinine were 7 and 1.48. Again, these are labs from yesterday. Troponin was initially 0.609 and then repeat was 2.370. Creatine kinase of 539, repeat 2085. Urine appears to be relatively normal. Drug screen was essentially negative. He was negative for salicylates, Tylenol, and alcohol. Acetone was negative and the major drug groups or drugs were negative. Influenza studies were negative. The CSF was essentially negative. The patient had a brain CT. It was negative. There may be some right maxillary sinusitis. His most recent chest x-ray shows pulmonary edema. This morning's chest x-ray has not yet been done. Medications are reviewed. He is on Tylenol, chlorhexidine, daptomycin, subcu heparin, Duo Neb, Ativan, Narcan, Protonix, Zosyn and vancomycin. ASSESSMENT: 1. Suspected drug overdose with mental status changes, despite a negative drug screen, requiring intubation and mechanical ventilation for airway protection. 2. Routine ventilator management. 3. History of polysubstance abuse. 4. Previous IV heroin overdose. 5. History of tobacco use. PLAN: The patient's FiO2 is dropped from 50%-40%. When he wakes up fully, will place him on PSV 5. CPAP of 5, and see if he is ready for extubation. His propofol is currently at 40. It will be turned off. His IV of 0.9 at 130 will be dropped down to 75. Will give him Lasix 20 mg IV push. His FiO2, as mentioned, will be dropped on 40%. Hopefully, will be able to do a spontaneous breathing trial and move toward extubation. If not, the patient will need tube feeds. Additional recommendations and suggestions are forthcoming. Prognosis is guarded. MMODL / IJN: [id number] /
--- NOTE | 2018-09-01 09:22 | P.CONS ---
History of Present Illness - Reason for Consult Consult date: 09/01/18 Septic shock IV drug abuse - History of Present Illness This is a 28-year-old male who presented to the emergency center yesterday by EMS. Patient's girlfriend states that she came home and found him unconscious on the floor with shallow breathing, gurgling and bloody mucus around his mouth and nose. She contacted 911 and gave chest compressions while waiting for EMS. She describes agonal type respirations at the time. She relates that he does have a history of heroin IV drug abuse and she did not think he was actively using recently. He is also hepatitis C positive. Patient was intubated in the emergency center, found to have a temperature maximum 100.7, tachycardia, tachypnea and initially hypertensive. White count was 21.9, creatinine 1.48 and lactic acid 9.1. He is status post 3 L of IV fluid and has had good urine output status post Lasix. Troponins have been elevated at 0.609, 2.370 and 1.720. Cardiology is on consult and echocardiogram has been completed this morning. Patient was intubated in the emergency center and extubated early this morning. Liver function tests and CK were elevated. Influenza testing negative. Patient presented with a blood sugar 341 with no history of diabetes. Blood culture status received. Acute hepatitis panel has been ordered. Initial chest x-ray was normal. Second chest x-ray showed pulmonary edema. #3 chest x-ray showed marked improvement with residual left basilar airspace disease likely atelectasis. CAT scan of the brain was normal with right maxillary sinusitis. Patient underwent lumbar puncture in the emergency center that was clear, glucose 135, protein 57, RBCs 2, nucleated cells 0. Cerebral spinal fluid sent for culture. Patient is currently on daptomycin, Zosyn and vancomycin.. Review of Systems ROS unobtainable: due to mental status Past Medical History Past Medical History: No Reported History History of Any Multi-Drug Resistant Organisms: None Reported Past Surgical History: Orthopedic Surgery Past Psychological History: Depression Smoking Status: Former smoker Past Alcohol Use History: None Reported Additional Past Alcohol Use History / Comment(s): Patient is a smoker of a half a pack to 1 pack per day. Positive IV drug use with heroin. Girlfriend denies any other known drug abuse. Patient works at a [employer]. No recent travel. No service. Patient has a cat in the home. Past Drug Use History: Heroin Medications and Allergies Home Medications Medication Instructions Recorded Confirmed Type No Known Home Medications 04/10/17 04/10/17 History Allergies Allergy/AdvReac Type Severity Reaction Status Date / Time No Known Allergies Allergy Verified 04/10/17 18:59 Physical Exam Vitals: Vital Signs Temp Pulse Pulse Resp BP Pulse Ox 09/01/18 08:00 99.3 F 91 18 123/73 96 09/01/18 07:00 91 15 127/78 94 L 09/01/18 06:50 92 15 127/78 94 L 09/01/18 06:40 93 17 127/78 93 L 09/01/18 06:30 93 17 134/87 94 L 09/01/18 06:20 87 15 134/87 94 L 09/01/18 06:10 90 15 134/87 94 L 09/01/18 06:00 112 H 18 131/86 96 09/01/18 05:50 90 16 133/94 97 09/01/18 05:40 91 16 133/94 97 09/01/18 05:30 110 H 16 116/75 98 09/01/18 05:20 78 16 116/75 97 09/01/18 05:10 74 16 116/75 98 09/01/18 05:00 80 16 112/68 97 09/01/18 04:50 79 16 112/68 97 09/01/18 04:40 86 16 112/68 97 09/01/18 04:30 82 16 109/64 97 09/01/18 04:20 84 16 109/64 97 09/01/18 04:10 87 15 109/64 97 09/01/18 04:00 98.6 F 85 16 108/63 97 09/01/18 03:50 86 16 108/63 97 09/01/18 03:40 87 16 108/63 98 09/01/18 03:30 84 16 109/68 97 09/01/18 03:21 88 09/01/18 03:20 86 16 109/68 97 09/01/18 03:10 86 16 106/65 97 09/01/18 03:08 88 09/01/18 03:00 89 16 109/70 97 09/01/18 02:50 86 16 109/70 97 09/01/18 02:40 87 16 109/70 98 06/07/ 02:30 81 16 109/67 98 07 02:20 84 16 109/67 98 07 02:10 84 16 109/67 98 09/01/18 02:00 83 16 115/68 98 09/01/18 01:50 86 16 115/68 98 06/07 01:40 85 0 L 115/68 98 0607 01:30 87 17 116/71 97 07 01:20 86 16 116/71 97 07 01:10 86 16 116/71 97 09/01/18 01:00 82 16 119/75 98 09/01/18 00:50 85 16 119/75 99 09/01/18 00:40 87 16 119/75 98 09/01/18 00:30 86 16 121/75 09/01/18 00:20 87 16 121/75 97 07 00:10 89 16 121/75 97 07 00:00 98.1 F 90 16 112/71 98 06/09/13 23:50 92 16 112/71 98 08/31/18 23:40 92 16 112/71 97 08/31/18 23:30 92 16 116/73 98 06 23:20 92 16 116/73 97 08/31/18 23:18 92 08/31/18 23:10 93 16 116/73 97 08/31/18 23:02 92 08/31/18 23:00 93 16 119/61 98 /09/13 22:50 97 16 119/61 98 08/31/18 22:40 99 16 127/69 98 06 22:30 116 H 16 98 08/31/18 22:29 115 H 16 98 /09/13 22:10 97 16 120/81 98 06 22:00 102 H 16 121/79 98 06 21:59 98 16 121/79 98 08/31/18 21:50 98 22 119/79 97 08/31/18 21:40 98 17 132/89 99 08/31/18 21:30 105 H 23 131/82 97 08/31/18 21:20 122 H 23 139/105 97 08/31/18 21:10 115 H 23 113/81 95 08/31/18 20:50 94 20 114/78 96 08/31/18 20:30 110 H 25 H 115/81 95 08/31/18 20:20 125 H 23 130/84 95 08/31/18 20:13 98 F 104 H 25 H 115/81 96 08/31/18 20:06 110 H 28 H 130/84 95 08/31/18 19:51 117 H 33 H 127/88 95 08/31/18 19:48 119 H 36 H 128/88 86 L 08/31/18 19:24 32 H 08/31/18 19:20 141 H 30 H 145/91 93 L 08/31/18 19:15 35 H 08/31/18 19:07 126 H 08/31/18 18:52 100.7 F H 129 H 38 H 119/93 93 L Intake and Output 08/31/18 09/01/18 09/01/18 22:59 06:59 14:59 Intake Total 380 1502.083 100 Output Total 125 2560 100 Balance 255 -1057.917 0 Intake: IV 380 1420 100 DAPTOmycin 400 mg In 50 Sodium Chloride 0.9% 50 ml @ 100 mls/hr IVPB Q24H [facility] Rx#:[id number] Piperacillin-Tazobactam 3 200 .375 gm In Sodium Chloride 0.9% 100 ml @ 200 mls/hr IVPB ONCE STA Rx#:[id number] Sodium Chloride 0.9% 1, 130 1170 100 000 ml @ 130 mls/hr IV . Q7H42M [facility] Rx#:[id number] Vancomycin 1,500 mg In 250 Sodium Chloride 0.9% 250 ml @ 125 mls/hr IVPB ONCE ONE Rx#:[id number] Intake, IV Titration 82.083 Amount Propofol 1,000 mg In 82.083 Empty Bag 1 bag @ Titrate IV .Q0M [facility] Rx#: [id number] Oral 0 Output: Urine 125 2560 100 Other: Voiding Method Indwelling Catheter Weight 72.575 kg 77.5 kg Gen: This is a 28-year-old male. He is resting in ICU bed and appears to be comfortable and in no acute distress. Patient minimally follows all directions. He appears to be in no acute distress. HEENT: Head is atraumatic, normocephalic. Pupils equal, round. Sclerae is anicteric. Conjunctiva pink. Extremities the mouth are moist. Patient's dentition is in poor order. NECK: Supple. No JVD. No lymphadenopathy. No thyromegaly. LUNGS: Diminished but otherwise clearuscultation. No wheezes or rhonchi. No intercostal retractions. HEART: Regular rate and rhythm. No murmur. ABDOMEN: Soft. Bowel sounds are present. No masses. No tenderness. EXTREMITIES: No pedal edema. No calf tenderness.Dorsalis pedis +2 bilaterally. Patient has multiple puncture/scratch potts with scabs on his bilateral feet and ankles. NEUROLOGICAL: Patient is awake.no focal neural deficits. Results Results: Laboratory Results WBC 12.6 k/uL (3.8-10.6) H 09/01/18 05:04 RBC 4.48 m/uL (4.30-5.90) 09/01/18 05:04 Hgb 13.6 gm/dL (13.0-17.5) 09/01/18 05:04 Hct 39.0 % (39.0-53.0) 09/01/18 05:04 MCV 87.0 fL (80.0-100.0) 09/01/18 05:04 MCH 30.3 pg (25.0-35.0) 09/01/18 05:04 MCHC 34.9 g/dL (31.0-37.0) 09/01/18 05:04 RDW 13.7 % (11.5-15.5) 09/01/18 05:04 Plt Count 227 k/uL (150-450) 09/01/18 05:04 Neutrophils % 82 % 09/01/18 05:04 Lymphocytes % 12 % 09/01/18 05:04 Monocytes % 5 % 09/01/18 05:04 Eosinophils % 0 % 09/01/18 05:04 Basophils % 0 % 09/01/18 05:04 Neutrophils # 10.3 k/uL (1.3-7.7) H 09/01/18 05:04 Lymphocytes # 1.5 k/uL (1.0-4.8) 09/01/18 05:04 Monocytes # 0.6 k/uL (0-1.0) 09/01/18 05:04 Eosinophils # 0.1 k/uL (0-0.7) 09/01/18 05:04 Basophils # 0.0 k/uL (0-0.2) 09/01/18 05:04 PT 10.2 sec (9.0-12.0) 08/31/18 18:54 INR 1.0 (<1.2) 08/31/18 18:54 Sample Site [facility] 09/01/18 04:23 ABG pH 7.31 (7.35-7.45) L 09/01/18 04:23 ABG pCO2 48 mmHg (35-45) H 09/01/18 04:23 ABG pO2 154 mmHg (83-108) H 09/01/18 04:23 ABG HCO3 25 mmol/L (21-25) 09/01/18 04:23 ABG Total CO2 26 mmol/L (19-24) H 09/01/18 04:23 ABG O2 Saturation 98.8 % (94-97) H 09/01/18 04:23 ABG Base Excess -1.7 mmol/L 09/01/18 04:23 Nabeel Test Yes 09/01/18 04:23 FiO2 50 % 09/01/18 04:23 Sodium 140 mmol/L (137-145) 09/01/18 05:04 Potassium 4.4 mmol/L (3.5-5.1) 09/01/18 05:04 Chloride 109 mmol/L (98-107) H 09/01/18 05:04 Carbon Dioxide 24 mmol/L (22-30) 09/01/18 05:04 Anion Gap 7 mmol/L 09/01/18 05:04 BUN 12 mg/dL (9-20) 09/01/18 05:04 Creatinine 0.87 mg/dL (0.66-1.25) 09/01/18 05:04 Est GFR (CKD-EPI)AfAm >90 (>60 ml/min/1.73 sqM) 09/01/18 05:04 Est GFR (CKD-EPI)NonAf >90 (>60 ml/min/1.73 sqM) 09/01/18 05:04 Glucose 80 mg/dL (74-99) 09/01/18 05:04 POC Glucose (mg/dL) 87 mg/dL (75-99) 08/31/18 23:01 POC Glu Water Purification Chemist ID Roberto Pretty 08/31/18 23:01 Plasma Lactic Acid Martin 0.8 mmol/L (0.7-2.0) 08/31/18 23:04 Calcium 8.2 mg/dL (8.4-10.2) L 09/01/18 05:04 Phosphorus 3.9 mg/dL (2.5-4.5) 09/01/18 05:04 Magnesium 1.7 mg/dL (1.6-2.3) 09/01/18 05:04 Total Bilirubin 0.6 mg/dL (0.2-1.3) 09/01/18 05:04 AST 155 U/L (17-59) H 09/01/18 05:04 ALT 112 U/L (21-72) H 09/01/18 05:04 Alkaline Phosphatase 84 U/L (38-126) 09/01/18 05:04 Creatine Kinase 2085 U/L (55-170) H* 09/01/18 00:39 CK-MB (CK-2) 35.4 ng/mL (0.0-2.4) H 09/01/18 05:04 Troponin I 1.720 ng/mL (0.000-0.034) H* 09/01/18 05:04 NT-Pro-B Natriuret Pep 29 pg/mL 08/31/18 18:54 Total Protein 6.3 g/dL (6.3-8.2) 09/01/18 05:04 Albumin 3.6 g/dL (3.5-5.0) 09/01/18 05:04 Urine Color Light Yellow 08/31/18 19:06 Urine Appearance Clear (Clear) 08/31/18 19:06 Urine pH 6.5 (5.0-8.0) 08/31/18 19:06 Ur Specific [place] 1.008 (1.001-1.035) 08/31/18 19:06 Urine Protein 1+ (Negative) H 08/31/18 19:06 Urine Glucose (UA) 3+ (Negative) H 08/31/18 19:06 Urine Ketones Negative (Negative) 08/31/18 19:06 Urine Blood Moderate (Negative) H 08/31/18 19:06 Urine Nitrite Negative (Negative) 08/31/18 19:06 Urine Bilirubin Negative (Negative) 08/31/18 19:06 Urine Urobilinogen <2.0 mg/dL (<2.0) 08/31/18 19:06 Ur Leukocyte Esterase Negative (Negative) 08/31/18 19:06 Urine RBC 3 /hpf (0-5) 08/31/18 19:06 Urine WBC 3 /hpf (0-5) 08/31/18 19:06 Hyaline Casts 7 /lpf (0-2) H 08/31/18 19:06 Urine Mucus Rare /hpf (None) H 08/31/18 19:06 CSF Tube Number 4 08/31/18 20:27 CSF Volume 1 08/31/18 20:27 CSF Appearance Clear 08/31/18 20:27 CSF Color Colorless 08/31/18 20:27 CSF RBC 2 u/L (0-10) 08/31/18 20:27 CSF Tot Nucleated Cells 0 u/L (0-5) 08/31/18 20:27 CSF Glucose 135 mg/dL (40-70) H 08/31/18 20:27 CSF Total Protein 57 mg/dL (12-60) 08/31/18 20:27 Salicylates <1.0 mg/dL 08/31/18 18:54 Urine Opiates Screen Not Detected (NotDetected) 08/31/18 21:40 Ur Oxycodone Screen Not Detected (NotDetected) 08/31/18 21:40 Urine Methadone Screen Not Detected (NotDetected) 08/31/18 21:40 Ur Propoxyphene Screen Not Detected (NotDetected) 08/31/18 21:40 Acetaminophen <10.0 ug/mL 08/31/18 18:54 Ur Barbiturates Screen Not Detected (NotDetected) 08/31/18 21:40 U Tricyclic Antidepress Not Detected (NotDetected) 08/31/18 21:40 Ur Phencyclidine Scrn Not Detected (NotDetected) 08/31/18 21:40 Ur Amphetamines Screen Not Detected (NotDetected) 08/31/18 21:40 U Methamphetamines Scrn Not Detected (NotDetected) 08/31/18 21:40 U Benzodiazepines Scrn Not Detected (NotDetected) 08/31/18 21:40 Urine Cocaine Screen Not Detected (NotDetected) 08/31/18 21:40 U Marijuana (THC) Screen Not Detected (NotDetected) 08/31/18 21:40 Serum Alcohol <10 mg/dL 08/31/18 18:54 Acetone, Qual Negative (Negative) 09/01/18 00:39 Influenza Type A RNA Not Detected (Not Detectd) 09/01/18 01:35 Influenza Type B (PCR) Not Detected (Not Detectd) 09/01/18 01:35 CBC & Chem 7: 09/01/18 05:04 09/01/18 05:04 Labs: Abnormal Lab Results - Last 24 Hours (Table) 08/31/18 08/31/18 08/31/18 Range/Units 18:54 18:54 18:54 WBC 21.9 H (3.8-10.6) k/uL Neutrophils # 17.3 H (1.3-7.7) k/uL ABG pH (7.35-7.45) ABG pCO2 (35-45) mmHg ABG pO2 (83-108) mmHg ABG Total CO2 (19-24) mmol/L ABG O2 Saturation (94-97) % Chloride (98-107) mmol/L Carbon Dioxide 19 L (22-30) mmol/L BUN 7 L (9-20) mg/dL Creatinine 1.48 H (0.66-1.25) mg/dL Glucose 341 H (74-99) mg/dL Plasma Lactic Acid Martin (0.7-2.0) mmol/L Calcium (8.4-10.2) mg/dL AST 116 H (17-59) U/L ALT 74 H (21-72) U/L Creatine Kinase 539 H (55-170) U/L CK-MB (CK-2) (0.0-2.4) ng/mL Troponin I 0.609 H* (0.000-0.034) ng/mL Urine Protein (Negative) Urine Glucose (UA) (Negative) Urine Blood (Negative) Hyaline Casts (0-2) /lpf Urine Mucus (None) /hpf CSF Glucose (40-70) mg/dL 08/31/18 08/31/18 08/31/18 Range/Units 18:54 18:54 19:06 WBC (3.8-10.6) k/uL Neutrophils # (1.3-7.7) k/uL ABG pH (7.35-7.45) ABG pCO2 (35-45) mmHg ABG pO2 (83-108) mmHg ABG Total CO2 (19-24) mmol/L ABG O2 Saturation (94-97) % Chloride (98-107) mmol/L Carbon Dioxide (22-30) mmol/L BUN (9-20) mg/dL Creatinine (0.66-1.25) mg/dL Glucose (74-99) mg/dL Plasma Lactic Acid Martin 9.1 H* (0.7-2.0) mmol/L Calcium (8.4-10.2) mg/dL AST (17-59) U/L ALT (21-72) U/L Creatine Kinase (55-170) U/L CK-MB (CK-2) 6.4 H (0.0-2.4) ng/mL Troponin I (0.000-0.034) ng/mL Urine Protein 1+ H (Negative) Urine Glucose (UA) 3+ H (Negative) Urine Blood Moderate H (Negative) Hyaline Casts 7 H (0-2) /lpf Urine Mucus Rare H (None) /hpf CSF Glucose (40-70) mg/dL 08/31/18 08/31/18 09/01/18 Range/Units 20:27 21:55 00:39 WBC (3.8-10.6) k/uL Neutrophils # (1.3-7.7) k/uL ABG pH 7.30 L (7.35-7.45) ABG pCO2 48 H (35-45) mmHg ABG pO2 >400 H (83-108) mmHg ABG Total CO2 25 H (19-24) mmol/L ABG O2 Saturation 99.5 H (94-97) % Chloride (98-107) mmol/L Carbon Dioxide (22-30) mmol/L BUN (9-20) mg/dL Creatinine (0.66-1.25) mg/dL Glucose (74-99) mg/dL Plasma Lactic Acid Martin (0.7-2.0) mmol/L Calcium (8.4-10.2) mg/dL AST (17-59) U/L ALT (21-72) U/L Creatine Kinase 2085 H* (55-170) U/L CK-MB (CK-2) (0.0-2.4) ng/mL Troponin I (0.000-0.034) ng/mL Urine Protein (Negative) Urine Glucose (UA) (Negative) Urine Blood (Negative) Hyaline Casts (0-2) /lpf Urine Mucus (None) /hpf CSF Glucose 135 H (40-70) mg/dL 09/01/18 09/01/18 09/01/18 Range/Units 00:39 00:39 04:23 WBC (3.8-10.6) k/uL Neutrophils # (1.3-7.7) k/uL ABG pH 7.31 L (7.35-7.45) ABG pCO2 48 H (35-45) mmHg ABG pO2 154 H (83-108) mmHg ABG Total CO2 26 H (19-24) mmol/L ABG O2 Saturation 98.8 H (94-97) % Chloride (98-107) mmol/L Carbon Dioxide (22-30) mmol/L BUN (9-20) mg/dL Creatinine (0.66-1.25) mg/dL Glucose (74-99) mg/dL Plasma Lactic Acid Martin (0.7-2.0) mmol/L Calcium (8.4-10.2) mg/dL AST (17-59) U/L ALT (21-72) U/L Creatine Kinase (55-170) U/L CK-MB (CK-2) 26.6 H (0.0-2.4) ng/mL Troponin I 2.370 H* (0.000-0.034) ng/mL Urine Protein (Negative) Urine Glucose (UA) (Negative) Urine Blood (Negative) Hyaline Casts (0-2) /lpf Urine Mucus (None) /hpf CSF Glucose (40-70) mg/dL 09/01/18 09/01/18 09/01/18 Range/Units 05:04 05:04 05:04 WBC 12.6 H (3.8-10.6) k/uL Neutrophils # 10.3 H (1.3-7.7) k/uL ABG pH (7.35-7.45) ABG pCO2 (35-45) mmHg ABG pO2 (83-108) mmHg ABG Total CO2 (19-24) mmol/L ABG O2 Saturation (94-97) % Chloride 109 H (98-107) mmol/L Carbon Dioxide (22-30) mmol/L BUN (9-20) mg/dL Creatinine (0.66-1.25) mg/dL Glucose (74-99) mg/dL Plasma Lactic Acid Martin (0.7-2.0) mmol/L Calcium 8.2 L (8.4-10.2) mg/dL AST 155 H (17-59) U/L ALT 112 H (21-72) U/L Creatine Kinase (55-170) U/L CK-MB (CK-2) 35.4 H (0.0-2.4) ng/mL Troponin I (0.000-0.034) ng/mL Urine Protein (Negative) Urine Glucose (UA) (Negative) Urine Blood (Negative) Hyaline Casts (0-2) /lpf Urine Mucus (None) /hpf CSF Glucose (40-70) mg/dL 09/01/18 Range/Units 05:04 WBC (3.8-10.6) k/uL Neutrophils # (1.3-7.7) k/uL ABG pH (7.35-7.45) ABG pCO2 (35-45) mmHg ABG pO2 (83-108) mmHg ABG Total CO2 (19-24) mmol/L ABG O2 Saturation (94-97) % Chloride (98-107) mmol/L Carbon Dioxide (22-30) mmol/L BUN (9-20) mg/dL Creatinine (0.66-1.25) mg/dL Glucose (74-99) mg/dL Plasma Lactic Acid Martin (0.7-2.0) mmol/L Calcium (8.4-10.2) mg/dL AST (17-59) U/L ALT (21-72) U/L Creatine Kinase (55-170) U/L CK-MB (CK-2) (0.0-2.4) ng/mL Troponin I 1.720 H* (0.000-0.034) ng/mL Urine Protein (Negative) Urine Glucose (UA) (Negative) Urine Blood (Negative) Hyaline Casts (0-2) /lpf Urine Mucus (None) /hpf CSF Glucose (40-70) mg/dL Microbiology - Last 24 Hours (Table) 08/31/18 20:27 CSF Gram Stain - Preliminary Cerebral Spinal Fluid Assessment and Plan Plan: This is a 28-year-old male who presented to Hospital with metabolic encephalopathy, possible toxic encephalopathy related to heroin overdose. He also presented with signs of SIRS or sepsis. Endocarditis to be ruled out based on his history. He is known to be hepatitis C and hepatitis panel is in process. We will also ask for HIV testing. Echocardiogram report is pending. Patient is currently on daptomycin and Zosyn and vancomycin. We will limit this to Zosyn for Now. Blood cultures status received. Cerebral spinal fluid culture is in progress. Continue supportive care. Further recommendations as patient progresses. The above dictated assessment and findings were discussed with Dr. Pérez. The impression and plan of care have been directed as dictated. Teresa Pierson nurse practitioner acting as scribe for Dr. Pérez.
--- NOTE | 2018-09-01 10:27 | ECHOF ---
Referral Reason:Elevated troponin, fever, evaluate for endocarditi MEASUREMENTS -------- HEIGHT: 172.7 cm WEIGHT: 77.1 kg BP: 127/78 IVSd: 1.2 cm (0.6 - 1.1) LVIDd: 3.5 cm (3.9 - 5.3) LVPWd: 1.3 cm (0.6 - 1.1) IVSs: 1.6 cm LVIDs: 2.2 cm LVPWs: 1.8 cm LAESV Index (A-L): 16.48 ml/m Ao Diam: 3.5 cm (2.0 - 3.7) AV Cusp: 2.2 cm (1.5 - 2.6) LA Diam: 2.0 cm (2.7 - 3.8) MV EXCURSION: 21.866 mm (> 18.000) MV EF SLOPE: 144 mm/s (70 - 150) EPSS: 0.7 cm MV E Elier: 0.77 m/s MV DecT: 225 ms MV A Elier: 0.59 m/s MV E/A Ratio: 1.30 RAP: 5.00 mmHg RVSP: 15.39 mmHg FINDINGS -------- Sinus rhythm. This was a technically good study. The left ventricular size is normal. There is mild concentric left ventricular hypertrophy. Overa ll left ventricular systolic function is low-normal with, an EF between 50 - 55 %. The right ventricle is normal in size. Normal LA size by volume 22+/-6 ml/m2. The right atrial size is normal. The aortic valve was not well visualized. The aortic valve is trileaflet and appears structurally n ormal. The mitral valve is normal. There is trace mitral regurgitation. The tricuspid valve appears structurally normal. Trace tricuspid regurgitation present. Right eliane tricular systolic pressure is normal at < 35 mmHg. There is no pulmonic regurgitation present. The aortic root size is normal. Normal inferior vena cava with normal inspiratory collapse consistent with estimated right atrial pre ssure of 5 mmHg. There is no pericardial effusion. CONCLUSIONS -------- 1. Sinus rhythm. 2. This was a technically good study. 3. The left ventricular size is normal. 4. There is mild concentric left ventricular hypertrophy. 5. Overall left ventricular systolic function is low-normal with, an EF between 50 - 55 %. 6. The right ventricle is normal in size. 7. Normal LA size by volume 22+/-6 ml/m2. 8. The right atrial size is normal. 9. The aortic valve was not well visualized. 10. The mitral valve is normal. 11. There is trace mitral regurgitation. 12. The tricuspid valve appears structurally normal. 13. Trace tricuspid regurgitation present. 14. Right ventricular systolic pressure is normal at < 35 mmHg. 15. There is no pulmonic regurgitation present. 16. The aortic root size is normal. 17. Normal inferior vena cava with normal inspiratory collapse consistent with estimated right atrial pressure of 5 mmHg. 18. There is no pericardial effusion. BOAT OUTFITTER: Maria Guadalupe Beltran RDCS
--- NOTE | 2018-09-01 10:48 | CONS ---
CONSULTATION This patient is seen in consultation for cardiac evaluation. The patient currently is unable to give any detailed history. The history was mostly obtained from the chart. He is a 28-year-old gentleman who was brought by EMS with a concern for drug overdose. The patient was found unresponsive by his significant other. The patient received Narcan by IV as well as by inhalation. Initially the acute CPR was started at the scene. Patient was brought to the emergency room and he was subsequently intubated. This patient does have a history of polysubstance abuse. He was on the ventilator overnight and he is extubated this morning. There is no definite prior cardiac history available. There is no previous history of endocarditis. Patient does have a history of IV drug use. PAST MEDICAL HISTORY: History of some orthopedic procedure. PHYSICAL EXAMINATION: Currently reveals the patient is a 28-year-old gentleman who does not appear to be in any acute distress. The patient initial temperature in the emergency room was 100.7, now with 99.3, blood pressure is 123/73 mmHg. Head/ENT examination is negative. Neck is supple. There is no increase in jugular venous pressure. Both the carotid pulses are felt. There is no bruit. Chest is symmetrical. HEART: The PMI is not felt. First and second heart sounds are heard. Lungs are fairly clear to auscultation and percussion. Abdomen is soft. Liver and spleen are not enlarged. Bowel sounds are heard. EXTREMITIES: Peripheral pulsations are 2+. EKG shows evidence of sinus tachycardia. The patient's CPK was 2085. Initial troponin was 0.609. Subsequent troponin was 2.37. Electrolytes are normal. Initial white count was 21,000, repeat white count is 12,000. The blood cultures are being awaited. FINAL IMPRESSION: 1. This patient is admitted with a drug overdose. The patient had a low-grade temperature. The patient is currently being treated for infection. The blood cultures are pending. A question of endocarditis was raised clinically. I do not hear any murmur. We will review the patient's echocardiogram. If patient has a persistent positive blood cultures, we will consider doing transesophageal echocardiogram. 2. Patient has abnormal troponin which is most likely secondary to myocardial injury because of the hypoxia and hypotension and drug overdose. MMODL / IJN: [id number] /
[2018-09-01 13:37] LABS: Hepatitis A Antibody IgM Non-Reactive (Non-Reactive); Hepatitis B Core IgM Non-Reactive (Non-Reactive)
--- NOTE | 2018-09-01 14:25 | P.CN ---
Psychiatric Consult - . Consult date: 09/01/18 Consult:: 09/01/18 14:24 Attempted to see patient to complete a psychiatric consultation patient is too sedated to perform a consultation please reconsult psychiatry when patient is more able to participate in an evaluation
--- NOTE | 2018-09-01 15:24 | PN ---
PROGRESS NOTE DATE OF SERVICE: 09/01/2018 This 28-year-old gentleman admitted with overdose and change in mental status and possible sepsis, hypotension as well as acute respiratory failure was mechanical overnight. Currently the patient extubated. Patient continues to be confused at this time. The patient also reports taking IV heroin, but the drug screen showed no evidence of any opioids at this time. The extended tox screen is pending at this time. The patient also had previous history of drug abuse and patient was clean for 2 years and relapsed recently. Patient was attending NA also. Troponins also elevated. A 2D echo showed normal ejection fraction. Cardiology is also following the patient closely as well. Patient also had pulmonary edema. The patient received a dose of Lasix last night. PAST MEDICAL HISTORY: Review of systems could not be taken, the patient is still confused. CURRENT MEDICATIONS: 1. Tylenol p.r.n. 2. DuoNeb q.i.d. and p.r.n. 3. Peridex. 4. Daptomycin IV. 5. Heparin. 6. Ativan. 7. Narcan. 8. Protonix. 9. Zosyn IV. 10.Propofol. PHYSICAL EXAM: Patient is stuporous, arousable, but drowsy. Pulse 92, blood pressure 127/76, respiration 20, temperature 99.2, pulse ox 93% on 2 L. HEENT: Conjunctivae normal. Oral mucosa moist. NECK: No jugular venous distention. No lymph node enlargement. CARDIOVASCULAR SYSTEM: S1, S2, muffled. RESPIRATION: Breath sounds diminished at the bases. A few scattered rhonchi, no crackles. ABDOMEN: Soft, nontender. No mass palpable. LEGS: No edema, no swelling. NERVOUS SYSTEM: Higher functions as mentioned earlier, moves all 4 limbs. No focal motor signs deficits. LYMPHATICS: No lymph nodes enlargement in the neck or axillae. SKIN: No ulcer, rash, or bleeding. JOINTS: No active deformity. LABS: WBC is 12.6, hemoglobin 13.6, sodium 140, potassium 4.4, the calcium is 8.2, and troponin is 1.720. Hepatitis C is reactive. ASSESSMENT: 1. Possible overdose with acute metabolic encephalopathy, change in mental status secondary to IV drug abuse. 2. Acute hypoxic respiratory failure, status post mechanical ventilation. 3. Hypotension, possibly secondary to overdose, rule out sepsis, rule out endocarditis. 4. Acute metabolic acidosis, secondary to multiple factors. 5. Acute renal failure possibly prerenal acute tubular necrosis. 6. Increased random blood sugar, undetermined significance. 7. Increased AST, ALT, possibly hepatitis C. 8. Increased creatine kinase with rhabdomyolysis. 9. Troponin elevated up to 2.370 of undetermined etiology. 10.Acute rhabdomyolysis. 11.History of previous overdose. 12.History of degenerative joint disease. 13.History of depression. 14.History of nicotine dependence. 15.History of heroin usage. 16.FULL CODE. RECOMMENDATION: In this 28-year-old gentleman who presented with multiple complex medical issues, will monitor the patient closely, continue with the current management and I would recommend to continue IV antibiotics. We will await the cultures. Closely follow with Cardiology. A 2-D echo reported showing no acute abnormality at this time. We will continue to monitor, closely follow with multiple consultants. Social Work consultations discussed with sister, possible drug rehab. Guarded prognosis. Further recommendations to follow. MMODL / IJN: [id number] /
[2018-09-01 16:53] LABS: HIV 1 AB Non-Reactive (Non-Reactive); HIV AB P24 Non-Reactive (Non-Reactive); HIV P24 AG Non-Reactive (Non-Reactive)
--- NOTE | 2018-09-01 23:42 | P.CON ---
Consult Note - . Consult date: 09/01/18 Assessment/Plan:: This is a 28-year-old male who presented to the emergency center yesterday by EMS. Patient's girlfriend states that she came home and found him unconscious on the floor with shallow breathing, gurgling and bloody mucus around his mouth and nose. She contacted 911 and gave chest compressions while waiting for EMS. She describes agonal type respirations at the time. She relates that he does have a history of heroin IV drug abuse and she did not think he was actively using recently. He is also hepatitis C positive. Patient was intubated in the emergency center, found to have a temperature maximum 100.7, tachycardia, tachypnea and initially hypertensive. White count was 21.9, creatinine 1.48 and lactic acid 9.1. He is status post 3 L of IV fluid and has had good urine output status post Lasix. Troponins have been elevated at 0.609, 2.370 and 1.720. Cardiology is on consult and echocardiogram has been completed this morning. Patient was intubated in the emergency center and extubated early this morning. Liver function tests and CK were elevated. Influenza testing negative. Patient presented with a blood sugar 341 with no history of diabetes. Blood culture status received. Acute hepatitis panel has been ordered. Initial chest x-ray was normal. Second chest x-ray showed pulmonary edema. #3 chest x-ray showed marked improvement with residual left basilar airspace disease likely atelectasis. CAT scan of the brain was normal with right maxillary sinusitis. Patient underwent lumbar puncture in the emergency center that was clear, glucose 135, protein 57, RBCs 2, nucleated cells 0. Cerebral spinal fluid sent for culture. Patient is currently on daptomycin, Zosyn and vancomycin..Please see the consult note as dictated by nurse practitioner Veronica Teresa Pierson. The patient is now considerably more arousable. He actually is attempting to have some lunch after he has been awoken. He is still a poor historian but is able to answer simple questions and moves all extremities. The data has been reviewed there is no evidence of meningitis. He has significant pulmonary edema. There concerns at this point, the possibility of endocarditis and blood cultures are in process. Echocardiogram without evidence of significant vegetation. If possible cultures are found JOVANA within be required to further evaluate for endocarditis. The patient does complain of some slight discomfort to his anterior chest wall this is the area where cardiopulmonary resuscitation was performed and there is a bit of an abrasion it is mildly tender. Antibiotic therapy at this time because of Zosyn and daptomycin given the acute kidney injury. The patient recovering from his current episode which appear to be a septic shocklike event. The echocardiogram didn't reveal evidence of a low normal ejection fraction making a myocarditis quite likely. The cultures and testing will further direct overall course of therapy. I agree with evaluation, assessment and plan as dictated by nurse practitioner Mrs. Teresa Pierson.
[2018-09-02] MEDS: HEPARIN SODIUM,PORCINE 5,000 UNIT/ML 1 ML VIAL SQ SCH ×3 (01:15→16:08)
[2018-09-02 05:37] LABS: Basophils % (A) 0 %; Eosinophils # (A) 0.3 k/uL (0-0.7); Eosinophils % (A) 5 %; HCT 36.4 % (39.0-53.0); HGB 12.3 gm/dL (13.0-17.5); Lymphocytes # (A) 1.7 k/uL (1.0-4.8); Lymphocytes % (A) 26 %; MCH 29.8 pg (25.0-35.0); MCHC 33.7 g/dL (31.0-37.0); MCV 88.4 fL (80.0-100.0); Monocytes # (A) 0.3 k/uL (0-1.0); Monocytes % (A) 5 %; Neutrophils # (A) 4.2 k/uL (1.3-7.7); Neutrophils % (A) 62 %; Platelet Count 210 k/uL (150-450); RBC 4.12 m/uL (4.30-5.90); RDW 14.7 % (11.5-15.5); WBC 6.7 k/uL (3.8-10.6)
[2018-09-02 05:46] LABS: ALT 119 U/L (21-72); AST 90 U/L (17-59); African American GFR (CKD) >90 (>60 ml/min/1.73 sqM); Albumin 3.2 g/dL (3.5-5.0); Alkaline Phosphatase 64 U/L (38-126); Anion Gap 6 mmol/L; Blood Urea Nitrogen 9 mg/dL (9-20); Calcium 8.7 mg/dL (8.4-10.2); Carbon Dioxide 23 mmol/L (22-30); Chloride 112 mmol/L (98-107); Glucose 87 mg/dL (74-99); Magnesium 1.8 mg/dL (1.6-2.3); Phosphorus 1.6 mg/dL (2.5-4.5); Potassium 3.6 mmol/L (3.5-5.1); Sodium 141 mmol/L (137-145); Total Bilirubin 0.7 mg/dL (0.2-1.3); Total Protein 5.7 g/dL (6.3-8.2)
[2018-09-02] MEDS: PIPERACILLIN-TAZOBACTAM 3.375 GM in SODIUM CHLORIDE 0.9% 100 ML IVPB SCH ×3 (06:11→22:38)
[2018-09-02] MEDS: SODIUM CHLORIDE 0.9% 1,000 ML IV SCH (06:12)
[2018-09-02] MEDS ORDERED: Phosphorus Replacement Protoco 1 EACH MISC MISCELLANE PRN (07:25)
[2018-09-02] MEDS: PANTOPRAZOLE 40 MG/10 ML VIAL IV SCH (08:00)
[2018-09-02] MEDS: POTASSIUM PHOSPHATE 10 MMOL in SODIUM CHLORIDE 0.9% 250 ML IV SCH ×2 (08:01→10:23)
--- NOTE | 2018-09-02 09:04 | PN ---
PROGRESS NOTE DATE OF SERVICE: 09/02/2018 This is a 28-year-old gentleman who came in with a suspected drug overdose. He had mental status changes. His drug screen was negative. The patient was intubated for airway protection and extubated yesterday. He has a history of polysubstance abuse including IV heroin. He also has history of chronic tobacco use. I did speak to his girlfriend yesterday. The patient is currently doing reasonably well. He has been seen by Psychiatry. He has been made an overflow patient. The patient is not receiving any supplemental oxygen. His IV is 0.9 at 130 to be turned down 50 mL an hour. The patient could be transferred out here today to the general medical floor. He has been seen by both Cardiology and Infectious Diseases. Current vital signs are stable. Temperature 97.9, heart rate 66, respiratory rate 16, blood pressure 134/86 mean 102, room air saturation 92%. Appears in no acute distress. HEENT: Examination is grossly unremarkable. Mucous membranes are moist. No oral lesions. NECK: Supple. Full range of motion. No adenopathy. CARDIOVASCULAR: Examination reveals regular rhythm and rate. S1, S2 normal. No murmur. LUNGS: Reveal clear breath sounds. No wheezes, rhonchi, or crackles. ABDOMEN: Soft. EXTREMITIES: Intact. No cyanosis, clubbing, or edema. SKIN: Without rash. NEUROLOGIC: Examination is brief, but nonfocal. Microbiologic studies including CSF, blood, urine are all negative. LABORATORY DATA: From today is currently pending. The patient did have an echocardiogram which did not show vegetation. Hepatitis C serology was positive, though. Medications are reviewed. He remains on Zosyn per Infectious Diseases as well as daptomycin. ASSESSMENT: 1. Suspected drug overdose with mental status changes. 2. Intubation and mechanical ventilation for airway protection and hypoxemic respiratory failure. 3. Routine ventilator management, with extubation on 09/01/2018. 4. History of polysubstance abuse. 5. Previous history of IV heroin overdose. 6. History of chronic tobacco use. 7. History of hepatitis C. PLAN: The patient is doing reasonably well. He was seen by Psychiatry yesterday. Also being followed by Cardiology and Infectious Diseases. I think the antibiotics could certainly be deescalated. The echocardiogram apparently did not show any vegetations. Will leave that up to Infectious Diseases. The patient is an overflow patient, could be transferred out to general medical floor. Additional recommendations and suggestions are forthcoming. Prognosis is guarded given his drug history. MMODL / IJN: [id number] /
[2018-09-02 13:33] LABS: Serum Amphetamine Negative; Serum Barbiturates Negative; Serum Benzodiazepine Negative; Serum Cocaine Negative; Serum Methadone Negative; Serum Opiates Negative; Serum Phencyclidine Negative; Serum Propoxyphene Negative; Serum THC (Cannabis) Negative
--- NOTE | 2018-09-02 22:38 | PN ---
PROGRESS NOTE DATE OF SERVICE: 09/02/2018. This 28-year-old gentleman who was admitted with possible overdose was extubated. The patient being closely monitored at this time. Apparently the patient's sister is willing to take him home currently. No chest pain. No palpitations. Multiple consultants are following the patient closely. EXAM: GENERAL: Alert and oriented times three. VITAL SIGNS: Pulse 80, blood pressure 130/90, respiration 18, temp 98.2, pulse ox 94% on room air. HEENT is conjunctivae normal. NECK: No jugular venous distention. CARDIOVASCULAR: S1, S2 muffled. RESPIRATION: Breath sounds diminished in the bases. A few scattered rhonchi and crackles. ABDOMEN is soft, nontender. LEGS are no edema. No swelling. CENTRAL NERVOUS SYSTEM: No focal deficits. LABORATORY DATA: WBC 6.2, hemoglobin 12.2, sodium 140, potassium 3.6, AST 90, ALT is 119, improving. Troponins are noted. Hepatitis C is reactive. ASSESSMENT: 1. Possible overdose with acute metabolic encephalopathy, change in mental status secondary to IV drug abuse. 2. Acute hypoxic respiratory failure status post mechanical ventilation. 3. Hypotension possibly secondary to overdose. Rule out sepsis, rule out endocarditis. 4. Acute metabolic acidosis secondary to multiple factors. 5. Acute renal failure possibly prerenal acute tubular necrosis. 6. Increased random blood sugar of undetermined significance. Increased AST, ALT, possibly hepatitis C. 7. Increased creatine kinase with acute rhabdomyolysis. 8. Troponin elevated up to 2.370, undetermined etiology. 9. History of previous overdose. 10.History of degenerative joint disease. 11.History of depression. 12.History of nicotine dependence. 13.History of heroin usage. 14.FULL CODE. RECOMMENDATIONS AND DISCUSSION: Recommend to continue current medications. Monitor symptomatic treatment. Otherwise, at this time, the patient was seen by multiple consultants and we will continue to monitor. Once cleared by consultants, patient may be discharged home with further plans for outpatient followup. Otherwise, blood cultures are negative so far. Otherwise, we will continue to monitor. Guarded prognosis. Further recommendations to follow. White count is normalized at this time 6.7. The patient is on IV daptomycin. MMODL / IJN: [id number] /
[2018-09-03] MEDS: HEPARIN SODIUM,PORCINE 5,000 UNIT/ML 1 ML VIAL SQ SCH ×2 (00:18→08:44)
[2018-09-03] MEDS: SODIUM CHLORIDE 0.9% 1,000 ML IV SCH (03:19)
[2018-09-03 05:26] LABS: Basophils % (A) 0 %; Eosinophils # (A) 0.2 k/uL (0-0.7); Eosinophils % (A) 3 %; HCT 36.9 % (39.0-53.0); HGB 12.6 gm/dL (13.0-17.5); Lymphocytes % (A) 32 %; MCH 29.4 pg (25.0-35.0); MCHC 34.1 g/dL (31.0-37.0); MCV 86.1 fL (80.0-100.0); Mean Platelet Volume 7.6; Monocytes # (A) 0.3 k/uL (0-1.0); Monocytes % (A) 5 %; Neutrophils # (A) 3.6 k/uL (1.3-7.7); Neutrophils % (A) 58 %; Platelet Count 204 k/uL (150-450); RBC 4.29 m/uL (4.30-5.90); RDW 13.7 % (11.5-15.5); WBC 6.3 k/uL (3.8-10.6)
[2018-09-03 05:38] LABS: ALT 87 U/L (21-72); AST 52 U/L (17-59); African American GFR (CKD) >90 (>60 ml/min/1.73 sqM); Albumin 3.2 g/dL (3.5-5.0); Alkaline Phosphatase 62 U/L (38-126); Anion Gap 6 mmol/L; Blood Urea Nitrogen 7 mg/dL (9-20); Calcium 9.1 mg/dL (8.4-10.2); Carbon Dioxide 22 mmol/L (22-30); Chloride 112 mmol/L (98-107); Glucose 102 mg/dL (74-99); Magnesium 1.6 mg/dL (1.6-2.3); Sodium 140 mmol/L (137-145); Total Bilirubin 0.8 mg/dL (0.2-1.3); Total Protein 5.8 g/dL (6.3-8.2)
[2018-09-03] MEDS: PIPERACILLIN-TAZOBACTAM 3.375 GM in SODIUM CHLORIDE 0.9% 100 ML IVPB SCH (05:46)
[2018-09-03] MEDS ORDERED: PANTOPRAZOLE 40 MG TABLET PO SCH (07:30)
[2018-09-03 10:18] VITALS: BP 144/97; PULSE 46; RESP 19; TEMP 98.8
[2018-09-03] MEDS ORDERED: ACETAMINOPHEN TAB 325 MG TAB PO PRN (11:46)
--- NOTE | 2018-09-03 21:46 | DS ---
DISCHARGE SUMMARY FINAL DIAGNOSES: 1. Possible overdose with acute metabolic encephalopathy, change in mental status secondary to IV drug abuse. 2. Acute hypoxic respiratory failure status post mechanical ventilation. 3. Hypotension possibly secondary to overdose, rule out sepsis, rule out endocarditis. 4. Acute metabolic acidosis secondary to multiple factors. 5. Acute renal failure possibly prerenal acute tubular necrosis. 6. Increased random blood sugar, undetermined significance. 7. Increased AST, ALT, possibly hepatitis C, chronic. 8. Increased creatine kinase with acute rhabdomyolysis. 9. Troponin elevated up to 2.370 on treatment, undetermined etiology. 10.History of previous overdose. 11.History of degenerative joint disease. 12.History of depression. 13.History of nicotine dependence. 14.History of heroin overdose. 15.FULL CODE. DISCHARGE DISPOSITION: The patient left the hospital AGAINST MEDICAL ADVICE. HISTORY OF PRESENT ILLNESS: This 28-year-old gentleman with a past medical history of multiple medical problems admitted with overdose and multiple other complex medical issues as mentioned. Patient treated in ICU. Patient was significantly. Patient given empiric antibiotics also. The patient was wanting to go home today, but however the patient is not willing to wait for Dr. Phillip for evaluation and recommendation of outpatient antibiotics and the patient left the hospital AGAINST MEDICAL ADVICE. The prognosis remains extremely guarded throughout the hospital stay. Please refer to the multiple notes and consultations and progress notes for further information. MMODL / IJN: [id number] /
--- NOTE | 2018-09-05 09:47 | CDI ---
Documentation Clarification Form Date: 09/05/18 From: Kathy Whitney Phone: If questions call Mel Justice @ [phone], Hours-8:30 am & 5 pm M- F Admit Date: 08/31/2018 9:24:00 PM Patient Name: Saran Johnson Visit Number: [id number] Discharge Date: 09/03/2018 1:10:00 PM ATTENTION: The Clinical Documentation Specialists (CDI) and [facility] Coding Staff appreciate your assistance in clarifying documentation. Please respond to the clarification below the line at the bottom and electronically sign. The CDI & [facility] Coding staff will review the response and follow-up if needed. Please note: Queries are made part of the Legal Health Record. If you have any questions, please contact the author of this message via ITS. Dr. Shirley Albrecht Patient has abnormal troponin which is most likely secondary to myocardial injury because of hypoxia and hypotension and drug overdose. History/Risk Factors: sepsis, severe sepsis w septic shock, metabolic encephalopathy, acute respiratory failure with hypoxia, acute renal failure, Troponin I: 0.609, 2.370, 1.720 EKG: shows evidence of sinus tachycardia. Echo: left ventricular hypertrophy low-normal with EF between 50-55% In your professional opinion, can you please clarify the type of myocardial injury? Type 2 OR Other, please specify Unable to determine MTDD
== END 2018-09-03 13:10 | disposition left against medical advice (07) | DRG 917 ==
LOC: EC 18:48 → 2SICU 21:24 → 3NMEDONC 09-03 09:12
PROVIDERS: ADMIT Internal Medicine; ATTEND Internal Medicine
PROC: 009U3ZX Drainage of Spinal Canal, Percutaneous Approach, Diagnostic (ICD-10-PCS; principal; 2018-08-31)
PROC: 0BH17EZ Insertion of Endotracheal Airway into Trachea, Via Natural or Artificial Opening (ICD-10-PCS; 2018-08-31)
PROC: 5A1935Z Respiratory Ventilation, Less than 24 Consecutive Hours (ICD-10-PCS; 2018-08-31)
DX: T40.1X1A Poisoning by heroin, accidental (unintentional), initial encounter (principal); R65.21 Severe sepsis with septic shock; A41.9 Sepsis, unspecified organism; G93.41 Metabolic encephalopathy; J96.01 Acute respiratory failure with hypoxia; R40.2222 Coma scale, best verbal response, incomprehensible words, at arrival to emergency department; E87.2 Acidosis; N17.9 Acute kidney failure, unspecified; M62.82 Rhabdomyolysis; J81.1 Chronic pulmonary edema; J98.11 Atelectasis; F19.10 Other psychoactive substance abuse, uncomplicated; R40.2352 Coma scale, best motor response, localizes pain, at arrival to emergency department; R40.2132 Coma scale, eyes open, to sound, at arrival to emergency department; B19.20 Unspecified viral hepatitis C without hepatic coma; J32.0 Chronic maxillary sinusitis; S20.319A Abrasion of unspecified front wall of thorax, initial encounter; M19.90 Unspecified osteoarthritis, unspecified site; L98.9 Disorder of the skin and subcutaneous tissue, unspecified; F32.9 Major depressive disorder, single episode, unspecified; Z91.5 Personal history of self-harm; Z87.891 Personal history of nicotine dependence; R79.89 Other specified abnormal findings of blood chemistry
CPT/HCPCS: 31500; 36415; 36600; 62270; 70450; 71045; 80053; 80074; 80306; 80307; 80320; 80329; 80371; 81001; 82009; 82550; 82553; 82805; 82945; 83520; 83605; 83735; 83880; 84100; 84157; 84484; 85025; 85610; 87040; 87070; 87086; 87205; 87390; 87502; 89050; 93005; 93306; 94002; 94003; 94640; 96361; 96365; 96372; 96375; 99291

== ENCOUNTER 2021-04-29 01:31 | Emergency (ER) | payer OTHER ==
[2021-04-29 01:40] VITALS: BP 132/90; PULSE 63; RESP 16; TEMP 97.3
--- NOTE | 2021-04-29 02:19 | XR ---
EXAMINATION TYPE: XR chest 2V DATE OF EXAM: 04/29/2021 COMPARISON: 09/01/2018 HISTORY: Short of breath TECHNIQUE: FINDINGS: Heart is normal. Lungs are clear of infiltrate. There is no heart failure. There is no pleu ral effusion. Bony thorax is intact IMPRESSION: No active cardiopulmonary disease. There is clearing of the atelectasis left lower lobe c ompared to old exam.
--- NOTE | 2021-04-29 03:21 | ED ---
SOB HPI - General Chief Complaint: Shortness of Breath Stated Complaint: SARA Time Seen by Provider: 04/29/21 03:11 Source: patient Mode of arrival: ambulatory - History of Present Illness Initial Comments: This patient is a 30-year-old man who presents to be evaluated for constellation of symptoms going back a number of days to week. The patient states she has had some intermittent burning chest pains, a little bit of change in his breathing. The patient has had some lightheadedness at times as well as myalgias. Tonight he was feeling more lightheaded and had some burning in his chest while he was sitting watching ask him on television. MD Complaint: shortness of breath, chest pain -: hour(s) Severity: mild Quality: dull, burning Improves With: nothing Worsens With: nothing Treatments Prior to Arrival: none - Related Data Previous Rx's Medication Instructions Recorded Acetaminophen Tab [Tylenol Tab] 500 mg PO Q6H PRN #30 tablet 09/03/18 Allergies Allergy/AdvReac Type Severity Reaction Status Date / Time bee venom protein (honey bee) Allergy Unknown Verified 04/29/21 01:40 Review of Systems ROS Statement: Those systems with pertinent positive or pertinent negative responses have been documented in the HPI. ROS Other: All systems not noted in ROS Statement are negative. Constitutional: Denies: fever, weakness Respiratory: Reports: as per HPI, dyspnea. Denies: cough, wheezes Cardiovascular: Reports: as per HPI, chest pain. Denies: palpitations, orthopnea, edema, syncope Gastrointestinal: Denies: abdominal pain, vomiting, diarrhea Genitourinary: Denies: dysuria, hematuria Musculoskeletal: Denies: back pain Skin: Denies: rash Neurological: Denies: headache, weakness, numbness Past Medical History Past Medical History: No Reported History Additional Past Medical History / Comment(s): Overdose, multisubstance abuse History of Any Multi-Drug Resistant Organisms: None Reported Past Surgical History: Orthopedic Surgery Past Psychological History: Depression Smoking Status: Current every day smoker Past Alcohol Use History: None Reported Past Drug Use History: Heroin Course Vital Signs 04/29/21 01:32 Temperature 97.3 F L Pulse Rate 63 Respiratory 16 Rate Blood Pressure 132/90 O2 Sat by Pulse 98 Oximetry Medical Decision Making - Lab Data Lab Results 04/29/21 Range/Units 04:20 Coronavirus (PCR) Detected A (Not Detectd) - EKG Data -: EKG Interpreted by Me EKG shows normal: sinus rhythm, axis (Normal), intervals (Normal), QRS complexes (Normal), ST-T waves (Normal) Rate: normal (Rate 69 bpm) Interpretation: normal EKG Disposition Clinical Impression: COVID-19 Disposition: HOME SELF-CARE Condition: Good Instructions (If sedation given, give patient instructions): Coronavirus Disease 2019 (COVID-19) Is patient prescribed a controlled substance at d/c from ED?: No Referrals: None,Stated [Primary Care Provider] - 1-2 days
== END 2021-04-29 05:30 | disposition home or self-care (01) ==
LOC: EC 01:31
DX: U07.1 COVID-19 (principal); F32.A Depression, unspecified; F17.200 Nicotine dependence, unspecified, uncomplicated
CPT/HCPCS: 71046; 87635; 93005; 99285

== ENCOUNTER 2021-05-25 23:55 | Emergency (ER) | payer OTHER ==
[2021-05-26 00:24] VITALS: BP 150/93; PULSE 105; RESP 20; TEMP 98
[2021-05-26] MEDS ORDERED: SODIUM CHLORIDE 0.9% 1,000 ML IV STA (00:26)
[2021-05-26] MEDS ORDERED: SODIUM CHLORIDE 0.9% 500 ML 500 ML IV STA (00:26)
[2021-05-26] MEDS ORDERED: LORazepam 2 MG/ML INJ IV STA (00:27)
--- NOTE | 2021-05-26 00:27 | ED ---
Arrhythmia/Palpitations HPI - General Chief Complaint: Arrhythmia/Palpitations Stated Complaint: Anxiety Time Seen by Provider: 05/26/21 00:05 Source: patient, RN notes reviewed, old records reviewed Mode of arrival: EMS Limitations: no limitations - History of Present Illness Initial Comments: This is a 30-year-old male to the emergency room today. Patient Dese for evaluation of not feeling well significantly elevated heart rate. Patient feels like at times he cannot catch his breath. Patient feels like his heart is pounding is chest palpitations. Patient has no medical history takes no medications no drug or alcohol history. No traumas. No significant travel history or sick contacts. MD Complaint: rapid heart beat, "heart racing", palpitations -: hour(s) Context: occurred during rest Arrhythmia History: other (none) Associated Symptoms: shortness of breath, anxiety Treatments Prior to Arrival: other (none) - Related Data Previous Rx's Medication Instructions Recorded Acetaminophen Tab [Tylenol Tab] 500 mg PO Q6H PRN #30 tablet 09/03/18 Allergies Allergy/AdvReac Type Severity Reaction Status Date / Time bee venom protein (honey bee) Allergy Unknown Verified 04/29/21 01:40 Review of Systems ROS Statement: Those systems with pertinent positive or pertinent negative responses have been documented in the HPI. ROS Other: All systems not noted in ROS Statement are negative. Past Medical History Past Medical History: No Reported History Additional Past Medical History / Comment(s): Overdose, multisubstance abuse History of Any Multi-Drug Resistant Organisms: None Reported Past Surgical History: Orthopedic Surgery Past Psychological History: Depression Smoking Status: Current every day smoker Past Alcohol Use History: None Reported Past Drug Use History: Heroin General Exam General appearance: alert, in no apparent distress, anxious Head exam: Present: atraumatic, normocephalic, normal inspection Eye exam: Present: normal appearance, PERRL, EOMI. Absent: scleral icterus, conjunctival injection, periorbital swelling ENT exam: Present: normal exam, mucous membranes moist Neck exam: Present: normal inspection. Absent: tenderness, meningismus, lymphadenopathy Respiratory exam: Present: normal lung sounds bilaterally. Absent: respiratory distress, wheezes, rales, rhonchi, stridor Cardiovascular Exam: Present: normal rhythm, tachycardia, normal heart sounds. Absent: systolic murmur, diastolic murmur, rubs, gallop, clicks GI/Abdominal exam: Present: soft, normal bowel sounds. Absent: distended, tenderness, guarding, rebound, rigid Extremities exam: Present: normal inspection, full ROM, normal capillary refill. Absent: tenderness, pedal edema, joint swelling, calf tenderness Back exam: Present: normal inspection Neurological exam: Present: alert, oriented X3, CN II-XII intact Psychiatric exam: Present: normal affect, normal mood Skin exam: Present: warm, dry, intact, normal color. Absent: rash Course Vital Signs 05/26/21 00:23 Temperature 98.0 F Pulse Rate 105 H Respiratory 20 Rate Blood Pressure 150/93 O2 Sat by Pulse 98 Oximetry - Reevaluation(s) Reevaluation #1: 05/26/21 03:43 Medical record is reviewed Reevaluation #2: 05/26/21 03:43 Patient symptoms are dramatically improved here in the ER Reevaluation #3: 05/26/21 03:43 Patient informed results questions answered EKG Findings - EKG Comments: EKG Findings:: EKG shows sinus tachycardia 105. 180 QRS 90 QTC 406 Medical Decision Making - Medical Decision Making 30 male to the emergency department for evaluation of palpitations and elevated heart rate feels like his heart is pounding. The values are checking out normal, patient's vital signs are improving he can be discharged home - Lab Data Result diagrams: 05/26/21 00:44 05/26/21 00:44 Lab Results 05/26/21 05/26/21 05/26/21 Range/Units 00:44 00:44 00:44 WBC 10.8 H (3.8-10.6) k/uL RBC 4.89 (4.30-5.90) m/uL Hgb 15.2 (13.0-17.5) gm/dL Hct 44.9 (39.0-53.0) % MCV 91.8 (80.0-100.0) fL MCH 31.0 (25.0-35.0) pg MCHC 33.8 (31.0-37.0) g/dL RDW 12.4 (11.5-15.5) % Plt Count 243 (150-450) k/uL MPV 7.1 Neutrophils % 52 % Lymphocytes % 31 % Monocytes % 5 % Eosinophils % 10 % Basophils % 1 % Neutrophils # 5.7 (1.3-7.7) k/uL Lymphocytes # 3.3 (1.0-4.8) k/uL Monocytes # 0.5 (0-1.0) k/uL Eosinophils # 1.1 H (0-0.7) k/uL Basophils # 0.1 (0-0.2) k/uL Sodium 139 (137-145) mmol/L Potassium 3.7 (3.5-5.1) mmol/L Chloride 100 (98-107) mmol/L Carbon Dioxide 27 (22-30) mmol/L Anion Gap 12 mmol/L BUN 9 (9-20) mg/dL Creatinine 0.72 (0.66-1.25) mg/dL Est GFR (CKD-EPI)AfAm >90 (>60 ml/min/1.73 sqM) Est GFR (CKD-EPI)NonAf >90 (>60 ml/min/1.73 sqM) Glucose 103 H (74-99) mg/dL Calcium 9.0 (8.4-10.2) mg/dL Phosphorus 3.5 (2.5-4.5) mg/dL Magnesium 1.7 (1.6-2.3) mg/dL Total Bilirubin 0.6 (0.2-1.3) mg/dL AST 35 (17-59) U/L ALT 70 H (4-49) U/L Alkaline Phosphatase 66 (38-126) U/L Troponin I <0.012 (0.000-0.034) ng/mL NT-Pro-B Natriuret Pep pg/mL Total Protein 7.9 (6.3-8.2) g/dL Albumin 4.8 (3.5-5.0) g/dL TSH 2.350 (0.465-4.680) mIU/L Urine Color Urine Appearance (Clear) Urine pH (5.0-8.0) Ur Specific [place] (1.001-1.035) Urine Protein (Negative) Urine Glucose (UA) (Negative) Urine Ketones (Negative) Urine Blood (Negative) Urine Nitrite (Negative) Urine Bilirubin (Negative) Urine Urobilinogen (<2.0) mg/dL Ur Leukocyte Esterase (Negative) Urine Opiates Screen (NotDetected) Ur Oxycodone Screen (NotDetected) Urine Methadone Screen (NotDetected) Ur Propoxyphene Screen (NotDetected) Ur Barbiturates Screen (NotDetected) U Tricyclic Antidepress (NotDetected) Ur Phencyclidine Scrn (NotDetected) Ur Amphetamines Screen (NotDetected) U Methamphetamines Scrn (NotDetected) U Benzodiazepines Scrn (NotDetected) Urine Cocaine Screen (NotDetected) U Marijuana (THC) Screen (NotDetected) Serum Alcohol <10 mg/dL 05/26/21 05/26/21 05/26/21 Range/Units 00:44 01:11 01:11 WBC (3.8-10.6) k/uL RBC (4.30-5.90) m/uL Hgb (13.0-17.5) gm/dL Hct (39.0-53.0) % MCV (80.0-100.0) fL MCH (25.0-35.0) pg MCHC (31.0-37.0) g/dL RDW (11.5-15.5) % Plt Count (150-450) k/uL MPV Neutrophils % % Lymphocytes % % Monocytes % % Eosinophils % % Basophils % % Neutrophils # (1.3-7.7) k/uL Lymphocytes # (1.0-4.8) k/uL Monocytes # (0-1.0) k/uL Eosinophils # (0-0.7) k/uL Basophils # (0-0.2) k/uL Sodium (137-145) mmol/L Potassium (3.5-5.1) mmol/L Chloride (98-107) mmol/L Carbon Dioxide (22-30) mmol/L Anion Gap mmol/L BUN (9-20) mg/dL Creatinine (0.66-1.25) mg/dL Est GFR (CKD-EPI)AfAm (>60 ml/min/1.73 sqM) Est GFR (CKD-EPI)NonAf (>60 ml/min/1.73 sqM) Glucose (74-99) mg/dL Calcium (8.4-10.2) mg/dL Phosphorus (2.5-4.5) mg/dL Magnesium (1.6-2.3) mg/dL Total Bilirubin (0.2-1.3) mg/dL AST (17-59) U/L ALT (4-49) U/L Alkaline Phosphatase (38-126) U/L Troponin I (0.000-0.034) ng/mL NT-Pro-B Natriuret Pep <11 pg/mL Total Protein (6.3-8.2) g/dL Albumin (3.5-5.0) g/dL TSH (0.465-4.680) mIU/L Urine Color Light Yellow Urine Appearance Clear (Clear) Urine pH 7.5 (5.0-8.0) Ur Specific [place] 1.005 (1.001-1.035) Urine Protein Negative (Negative) Urine Glucose (UA) Negative (Negative) Urine Ketones Negative (Negative) Urine Blood Negative (Negative) Urine Nitrite Negative (Negative) Urine Bilirubin Negative (Negative) Urine Urobilinogen <2.0 (<2.0) mg/dL Ur Leukocyte Esterase Negative (Negative) Urine Opiates Screen Not Detected (NotDetected) Ur Oxycodone Screen Not Detected (NotDetected) Urine Methadone Screen Not Detected (NotDetected) Ur Propoxyphene Screen Not Detected (NotDetected) Ur Barbiturates Screen Not Detected (NotDetected) U Tricyclic Antidepress Not Detected (NotDetected) Ur Phencyclidine Scrn Not Detected (NotDetected) Ur Amphetamines Screen Not Detected (NotDetected) U Methamphetamines Scrn Not Detected (NotDetected) U Benzodiazepines Scrn Not Detected (NotDetected) Urine Cocaine Screen Not Detected (NotDetected) U Marijuana (THC) Screen Detected H (NotDetected) Serum Alcohol mg/dL Disposition Clinical Impression: Tachycardia, Palpitations Disposition: HOME SELF-CARE Condition: Good Instructions (If sedation given, give patient instructions): Heart Palpitations (ED) Is patient prescribed a controlled substance at d/c from ED?: No Referrals: None,Stated [Primary Care Provider] - 1-2 days
[2021-05-26 01:03] LABS: Basophils # (A) 0.1 k/uL (0-0.2); Basophils % (A) 1 %; Eosinophils # (A) 1.1 k/uL (0-0.7); Eosinophils % (A) 10 %; HCT 44.9 % (39.0-53.0); HGB 15.2 gm/dL (13.0-17.5); Lymphocytes # (A) 3.3 k/uL (1.0-4.8); Lymphocytes % (A) 31 %; MCHC 33.8 g/dL (31.0-37.0); MCV 91.8 fL (80.0-100.0); Mean Platelet Volume 7.1; Monocytes # (A) 0.5 k/uL (0-1.0); Monocytes % (A) 5 %; Neutrophils # (A) 5.7 k/uL (1.3-7.7); Neutrophils % (A) 52 %; Platelet Count 243 k/uL (150-450); RBC 4.89 m/uL (4.30-5.90); RDW 12.4 % (11.5-15.5); WBC 10.8 k/uL (3.8-10.6)
[2021-05-26 01:13] LABS: ALT 70 U/L (4-49); AST 35 U/L (17-59); African American GFR (CKD) >90 (>60 ml/min/1.73 sqM); Albumin 4.8 g/dL (3.5-5.0); Alcohol <10 mg/dL; Alkaline Phosphatase 66 U/L (38-126); Anion Gap 12 mmol/L; Blood Urea Nitrogen 9 mg/dL (9-20); Carbon Dioxide 27 mmol/L (22-30); Chloride 100 mmol/L (98-107); Glucose 103 mg/dL (74-99); Magnesium 1.7 mg/dL (1.6-2.3); Non-African American GFR(CKD) >90 (>60 ml/min/1.73 sqM); Phosphorus 3.5 mg/dL (2.5-4.5); Potassium 3.7 mmol/L (3.5-5.1); Sodium 139 mmol/L (137-145); Total Bilirubin 0.6 mg/dL (0.2-1.3); Total Protein 7.9 g/dL (6.3-8.2)
[2021-05-26 01:52] LABS: Appearance,Urine Clear (Clear); Bilirubin,Urine Negative (Negative); Blood,Urine Negative (Negative); Color,Urine Light Yellow; Glucose,Urine (UA) Negative (Negative); Ketones,Urine Negative (Negative); Leukocyte Esterase,Urine Negative (Negative); Nitrite,Urine Negative (Negative); PH, Urine 7.5 (5.0-8.0); Protein,Urine Negative (Negative); Specific Gravity,Urine 1.005 (1.001-1.035); Urobilinogen,Urine <2.0 mg/dL (<2.0)
[2021-05-26 02:04] LABS: Amphetamine Screen,Urine Not Detected (NotDetected); Barbiturate Screen,Urine Not Detected (NotDetected); Benzodiazepines Screen,Urine Not Detected (NotDetected); Cocaine Screen,Urine Not Detected (NotDetected); Methadone Screen, Urine Not Detected (NotDetected); Opiate Screen,Urine Not Detected (NotDetected); Oxycodone Screen, Urine Not Detected (NotDetected); Phencyclidine Screen,Urine Not Detected (NotDetected); Tricyclic Antidepressant,Urine Not Detected (NotDetected); Urn Cannabinoid Scrn Detected (NotDetected)
== END 2021-05-26 03:07 | disposition home or self-care (01) ==
LOC: EC 23:55
DX: R00.2 Palpitations (principal); R00.0 Tachycardia, unspecified; F32.A Depression, unspecified; F17.200 Nicotine dependence, unspecified, uncomplicated; Z79.899 Other long term (current) drug therapy
CPT/HCPCS: 99285; 96374; 36415; 93005; 83880; 80053; 83735; 84100; 84443; 84484; 85025; 81003; 80306; G0480; J2060; 80320